=== PATIENT | female | born 1985 | race Caucasian/White ===

== ENCOUNTER 2020-12-02 08:00 | Outpatient (RCR) | payer MEDICAID, SELFPAY | END 2020-12-18 15:06 | disposition home or self-care (01) | LOC: HO.PT 08:00 | PROVIDERS: PCP Internal Medicine; Visit Provider Neurological Surgery | DX: M54.5 Low back pain (principal) | CPT/HCPCS: 97110; 97112; 97140; 97161; 97530 ==

== ENCOUNTER 2020-12-16 12:30 | Outpatient (REF) | payer MEDICAID, SELFPAY ==
[2020-12-16 14:02] LABS: MANUAL DIFF FLAG NO
[2020-12-16 14:07] LABS: Basophils Absolute Auto 0.1 X10*3/uL (0.0-0.2); Basophils Percent Auto 0.6 % (0-2); Eosinophils Absolute Auto 0.3 X10*3/uL (0.0-0.4); Eosinophils Percent Auto 3.5 % (0-4); Hematocrit 39.2 % (37-47); Hemoglobin 12.8 g/dl (12.0-16.0); Imm Gran Abs Auto 0.02 X10*3/uL (0.00-0.03); Imm Gran Pct Auto 0.2 % (0.0-0.4); Lymphocytes Absolute Auto 2.3 X10*3/uL (1.2-4.9); Lymphocytes Percent Auto 25.1 % (20-40); Mean Corpuscular HGB Conc 32.7 g/dl (31.0-35.0); Mean Corpuscular Hemoglobin 28.8 pg (27.0-33.0); Mean Corpuscular Volume 88.1 fL (80-98); Monocytes Absolute Auto 0.7 X10*3/uL (0.1-1.2); Neutrophils Absolute Auto 5.9 X10*3/uL (2.0-8.3); Neutrophils Percent Auto 63.6 % (45-73); Platelet Count 267 X10*3/uL (160-400); Red Blood Count 4.45 X10*6/uL (4.20-5.50); Red Cell Distribution Width 12.4 % (11.0-16.0); White Blood Count 9.3 X10*3/uL (4.8-10.8)
[2020-12-16 14:42] LABS: Alanine Aminotransferase 8 U/L (0-31); Albumin Level 4.1 g/dL (3.5-5.0); Alkaline Phosphatase 72 U/L (39-117); Aspartate Amino Transferase 15 U/L (5-31); Bilirubin Direct < 0.2 mg/dL (0.0-0.5); Bilirubin Total 0.5 mg/dL (0.0-1.0); Total Protein 7.1 g/dL (6.5-8.0)
[2020-12-16 15:05] LABS: T4 Thyroxine 7.5 ug/dL (4.5-12.0); Thyroid Stimulating Hormone 0.62 uIU/mL (0.32-4.0)
== END 2020-12-16 12:31 | disposition home or self-care (01) ==
LOC: HO.LAB 12:30
PROVIDERS: PCP Internal Medicine; Visit Provider Internal Medicine
DX: K59.00 Constipation, unspecified (principal)
CPT/HCPCS: 36415; 80076; 84436; 84443; 85025

== ENCOUNTER → 2021-03-23 06:59 | Outpatient (REF) | payer MEDICAID, SELFPAY ==
--- NOTE | 2021-03-23 07:04 | ECG_ITS ---
Test Reason : check qt prolongation Blood Pressure : / mmHG Vent. Rate : 052 BPM Atrial Rate : 052 BPM P-R Int : 138 ms QRS Dur : 092 ms QT Int : 480 ms P-R-T Axes : 067 065 037 degrees QTc Int : 446 ms Sinus bradycardia Incomplete right bundle branch block Abnormal ECG When compared with ECG of 22-JUN-2018 12:35, Vent. rate has decreased BY 33 BPM Referred By: Lisa Long Electronically Signed By:EVI VALENTE
== END ==
LOC: HO.CARD 06:59
PROVIDERS: PCP Internal Medicine; Visit Provider Family Medicine
DX: I45.81 Long QT syndrome (principal)
CPT/HCPCS: 93005

== ENCOUNTER 2021-03-25 11:58 | Outpatient (REF) | payer MEDICAID, SELFPAY ==
[2021-03-25 12:22] LABS: MANUAL DIFF FLAG NO
[2021-03-25 12:40] LABS: Basophils Percent Auto 0.2 % (0-2); Eosinophils Absolute Auto 0.2 X10*3/uL (0.0-0.4); Hematocrit 37.5 % (37-47); Hemoglobin 12.6 g/dl (12.0-16.0); Imm Gran Abs Auto 0.08 X10*3/uL (0.00-0.03); Imm Gran Pct Auto 0.5 % (0.0-0.4); Lymphocytes Absolute Auto 2.8 X10*3/uL (1.2-4.9); Lymphocytes Percent Auto 15.6 % (20-40); Mean Corpuscular HGB Conc 33.6 g/dl (31.0-35.0); Mean Corpuscular Hemoglobin 29.1 pg (27.0-33.0); Mean Corpuscular Volume 86.6 fL (80-98); Mean Platelet Volume 11.1 fL (9.4-12.3); Monocytes Absolute Auto 0.9 X10*3/uL (0.1-1.2); Neutrophils Absolute Auto 13.8 X10*3/uL (2.0-8.3); Neutrophils Percent Auto 77.7 % (45-73); Platelet Count 251 X10*3/uL (160-400); Red Blood Count 4.33 X10*6/uL (4.20-5.50); White Blood Count 17.7 X10*3/uL (4.8-10.8)
[2021-03-25 13:01] LABS: Alanine Aminotransferase 10 U/L (0-31); Albumin Level 4.2 g/dL (3.5-5.0); Alkaline Phosphatase 62 U/L (39-117); Anion Gap 13 (12-20); Aspartate Amino Transferase 16 U/L (5-31); Bilirubin Direct < 0.2 mg/dL (0.0-0.5); Bilirubin Total 0.3 mg/dL (0.0-1.0); Blood Urea Nitrogen 6 mg/dL (9-16); Calcium 9.5 mg/dL (8.4-10.2); Carbon Dioxide 26 mmol/L (22-29); Chloride 104 mmol/L (96-108); Cholesterol 189 mg/dL; Estimated Glomerular Filt Rate > 60; Glucose Random 110 mg/dL (60-115); HDL Cholesterol 32 mg/dL; LDL Cholesterol Calculated 128 mg/dl; Potassium 3.8 mmol/L (3.3-5.1); Sodium 139 mmol/L (135-145); Total Protein 7.2 g/dL (6.5-8.0); Triglycerides 149 mg/dL
[2021-03-25 13:22] LABS: TSH reflex Free T4 0.55 uIU/mL (0.32-4.0); Vitamin D 25-OH Total 37.3 ng/mL (>30)
[2021-03-25 13:28] LABS: Syphilis Screen Nonreactive (Nonreactive)
[2021-03-25 13:59] LABS: Estimated Average Glucose 88 mg/dL; Hemoglobin A1c % 4.7 %
[2021-03-25 14:54] LABS: CT PCR NOT DETECTED (Not Detect.); NG PCR NOT DETECTED (Not Detect.)
[2021-03-26 08:15] LABS: HIV AB/AG Nonreactive (Nonreactive); HIV Num 1 0.06 S/CO (0.00-0.99); ~HepC Num1 12.15 S/CO (0.00-0.79); ~Hepatitis C Antibody Reactive (Nonreactive)
[2021-03-30 09:22] LABS: HCV Log PCR <1.18 NOT DETECTED Log IU/mL (NOT DETECTED); HepC Viral Load <15 NOT DETECTED IU/mL (NOT DETECTED)
== END 2021-03-25 11:59 | disposition home or self-care (01) ==
LOC: HO.LAB 11:58
PROVIDERS: PCP Internal Medicine; Visit Provider Internal Medicine
DX: Z00.00 Encounter for general adult medical examination without abnormal findings (principal)
CPT/HCPCS: 80048; 80061; 80076; 82306; 83036; 84443; 85025; 86780; 86803; 87389; 87491; 87522; 87591

== ENCOUNTER 2022-01-18 18:02 | Emergency (ER) | payer MEDICAID, SELFPAY ==
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
--- NOTE | ~2022-01-18 | XR_ITS ---
EXAMINATION: XR FOOT, RIGHT CLINICAL INFORMATION: Pain and swelling right foot COMPARISON: None TECHNIQUE: AP, lateral, and oblique views of the right foot. FINDINGS: The bones and soft tissues are normal. A bone island is present in the distal tibia. No fracture. Alignment is anatomic. Joint spaces are maintained. There is a prominent Wood's toe (long second digit). XR/XR foot RT min 3V IMPRESSION: Cause for the patient's foot swelling and pain has not been found.
[2022-01-18 18:06] VITALS: BP 154/106; PULSE 123; RESP 22; TEMP 37.5; O2SAT 97; BMI 31.0
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
[2022-01-18] MEDS: Ibuprofen 800 MG TABLET PO (22:27)
== END 2022-01-18 23:06 | disposition home or self-care (01) ==
PROVIDERS: Emergency Provider Emergency Medicine
DX: S13.4XXA Sprain of ligaments of cervical spine, initial encounter (principal); R51.9 Headache, unspecified; S00.12XA Contusion of left eyelid and periocular area, initial encounter; S00.11XA Contusion of right eyelid and periocular area, initial encounter; M54.2 Cervicalgia; M79.671 Pain in right foot; Y04.2XXA Assault by strike against or bumped into by another person, initial encounter; Y93.9 Activity, unspecified; Y92.9 Unspecified place or not applicable; Y99.9 Unspecified external cause status; Z79.899 Other long term (current) drug therapy
CPT/HCPCS: 70450; 70486; 72125; 73630; 99282; 99284

== ENCOUNTER → 2022-11-24 13:06 | Outpatient (REF) | payer MEDICAID, SELFPAY ==
--- NOTE | 2022-11-24 13:11 | ECG_ITS ---
Test Reason : on methadone ck qt prolongation Blood Pressure : / mmHG Vent. Rate : 078 BPM Atrial Rate : 078 BPM P-R Int : 130 ms QRS Dur : 084 ms QT Int : 400 ms P-R-T Axes : 055 051 040 degrees QTc Int : 456 ms Normal sinus rhythm Normal ECG When compared with ECG of 23-MAR-2021 07:09, Vent. rate has increased BY 26 BPM Referred By: Dolly Buenrostro Electronically Signed By:JEMIMA SHARP MD
== END ==
LOC: HO.CARD 13:06
PROVIDERS: PCP Internal Medicine; Visit Provider Family Medicine
DX: Z79.899 Other long term (current) drug therapy (principal)
CPT/HCPCS: 93005

== ENCOUNTER 2023-03-30 03:18 | Emergency (ER) | payer MEDICAID, SELFPAY ==
[2023-03-30 03:25] VITALS: BP 134/56; PULSE 69; RESP 20; TEMP 36.8; O2SAT 96; BMI 32.8
[2023-03-30 03:48] LABS: Hematocrit 32.2 % (37.0-47.0); Hemoglobin 10.9 g/dl (12.0-16.0); Mean Corpuscular HGB Conc 33.9 g/dl (31.0-35.0); Mean Corpuscular Hemoglobin 29.5 pg (27.0-33.0); Mean Platelet Volume 10.1 fL (9.4-12.3); Platelet Count 248 X10*3/uL (160-400); Red Cell Distribution Width 12.3 % (11.0-16.0); White Blood Count 15.9 X10*3/uL (4.8-10.8)
[2023-03-30 04:10] LABS: Appearance Urine Clear; Color Urine Yellow; Glucose Urine UA Negative (Negative); Leukocyte Esterase Urine Small (1+) (Negative); Nitrite Urine Negative (Negative); PH 6.5 (5.0-9.0); UMIC TRIGGER UACC YES; Urine Blood Trace (Negative); Urine Ketones Negative (Negative); Urine Protein Trace mg/dL (Neg-Trace)
[2023-03-30 04:12] LABS: Urine Pregnancy POSITIVE (NEGATIVE)
[2023-03-30 04:13] LABS: UPreg QC Valid YES
[2023-03-30 04:13] LABS: Alanine Aminotransferase 14 U/L (0-31); Albumin Level 3.2 g/dL (3.5-5.0); Alkaline Phosphatase 210 U/L (39-117); Anion Gap 10 (12-20); Aspartate Amino Transferase 16 U/L (5-31); Bilirubin Total 0.2 mg/dL (0.0-1.0); Blood Urea Nitrogen 6 mg/dL (9-16); Calcium 8.7 mg/dL (8.4-10.2); Carbon Dioxide 21 mmol/L (22-29); Chloride 106 mmol/L (96-108); Creatinine Clr Calc Pharmacy 153.6; Estimated Glomerular Filt Rate > 60; Glucose Random 146 mg/dL (60-115); Lipase 8 U/L (8-78); Potassium 3.4 mmol/L (3.3-5.1); Sodium 134 mmol/L (135-145); Total Protein 6.5 g/dL (6.5-8.0)
[2023-03-30 04:15] LABS: Bacteria Urine 4+ (None Seen); Hyaline Casts Urine 0-2 /LPF (0-2); Squamous Epithelial Cell Urine >20 /HPF (0-2); UACC Culture Trigger YES; WBC Urine 21-50 /HPF (0-5)
[2023-03-30 04:18] LABS: Amphetamine Screen Urine Not Detected (Not Detect); Barbiturates, Urine Not Detected (Not Detect); Benzodiazepines Screen Urine Not Detected (Not Detect); Cannabinoid Screen Urine POSITIVE (Not Detect); Cocaine Screen Urine Not Detected (Not Detect); Fentanyl, urine Not Detected (Not Detect); Opiate Screen Urine Not Detected (Not Detect); Phencyclidine Screen Urine Not Detected (Not Detect)
[2023-03-30 06:14] VITALS: BP 115/62; PULSE 63; RESP 18; TEMP 36.8; O2SAT 94
--- NOTE | 2023-03-30 06:37 | ED_ITS ---
HPI - General Adult General Chief complaint: Back Pain/Injury Stated complaint: 7 months , sharp pain in back Time Seen by Provider: 03/30/23 06:36 Source: patient Mode of arrival: ambulatory Limitations: no limitations History of Present Illness HPI narrative: Patient is a 37 year old assigned female at with a history of lupus and being currently 7 months presenting to the emergency department today with left sided back pain. Patient states that over the last week she has had left sided back pain that is worsening. Patient states that she follows with OBGYN Dr. Larose at [facility]. Patient denies any dizziness, lightheadedness, abdominal pain, nausea, vomiting, fever, chills, blurry vision, double vision, loss of vision, chest pain, difficulty breathing, shortness of breath, night sweats, pain with urination, increased urinary frequency, increased urinary urgency, blood in her urine or stool, syncope or a near syncopal episode, recent trauma or falls, bowel incontinence, bladder incontinence, bowel retention, bladder retention, or any other complaints at this time. Onset (ago): week(s) Location: back and left Radiation: non-radiation Severity: mild Severity scale (1-10): 4 Quality: aching and dull Pain Consistency: constant Relieving factors: none Exacerbating factors: none Associated symptoms: denies other symptoms Treatments prior to arrival: none Related Data Previous Rx's Medication Instructions Recorded ibuprofen 800 mg tablet 800 mg PO Q8H PRN pain #15 tabs 01/18/22 Allergies Allergy/AdvReac Type Severity Reaction Status Date / Time acetaminophen [From TYLENOL] Allergy Unknown UNKNOWN Unverified 03/13/20 17:48 ciprofloxacin [CIPROFLOXACIN] Allergy Unknown UNKNOWN Unverified 03/13/20 17:48 metronidazole [From FLAGYL] Allergy Unknown HIVES Unverified 03/13/20 17:48 paroxetine [From PAXIL] Allergy Unknown UNKNOWN Unverified 03/13/20 17:48 tramadol [TRAMADOL] Allergy Unknown UNKNOWN Unverified 03/13/20 17:48 Review of Systems 2 Constitutional: Constitutional: Reports no additional constitutional complaints, Denies chills, Denies fever(s) and Denies night sweats Eyes: Eyes: Reports no additional eye complaints, Denies blurry vision, Denies change in vision, Denies diplopia, Denies eye discharge, Denies loss of vision and Denies eye pain ENT: Denies dizziness Cardiovascular: Cardiovascular: Reports no additional cardiovascular complaints, Denies chest pain, Denies lightheadedness, Denies Loss of Consciousness and Denies dyspnea Respiratory: Respiratory: Reports no additional respiratory complaints and Denies dyspnea Gastrointestinal: Gastrointestinal: Reports no additional gastrointestinal complaints, Denies abdominal pain, Denies melena, Denies hematochezia, Denies change in bowel habits and Denies change in stool character Genitourinary: Genitourinary: Denies hematuria, Denies urinary frequency, Denies dysuria, Denies urinary incontinence, Denies urinary hesitancy and Denies urinary urgency Musculoskeletal: Musculoskeletal: Reports no additional musculoskeletal complaints, Reports back pain, Denies numbness and Denies tingling Neurologic: Denies dizziness, Denies loss of vision, Denies numbness and Denies tingling Psychiatric: Psychiatric: Reports no additional psychiatric complaints Endocrine: Endocrine: Reports no additional endocrine complaints Hematologic/Lymphatic: Hematologic/Lymphatic: Reports no additional hematologic/lymphatic complaints Allergic/Immunologic: Allergic/Immunologic: Reports no additional allergic/immunologic complaints PMFSH Past Medical History Attestation statement: The following information was validated with the patient. Source: old records reviewed and nursing notes reviewed Social History Social History Smoked in Last 30 Days: No Use of substances other than those prescribed or required for medical reasons: Yes Substance Use Type: Marijuana Substance Use Frequency: Occasionally Advance Directives: No Advance Directives Information Provided: No Patient : Yes Physical Exam ED Vital Signs: Vital Signs - 24 hr 03/30/23 03:25 03/30/23 06:14 Temperature 98.3 F 98.3 F Pulse Rate 69 63 Respiratory Rate 20 18 Blood Pressure 134/56 L 115/62 Pulse Oximetry 96 94 Oxygen Delivery Method Room Air Room Air BMI result Body Mass Index 32.8 Const General: cooperative, no acute distress, alert and awake Nutritional Appearance: well nourished Orientation/consciousness: patient oriented x3 Limitations: no limitations HENMT Head: Yes normal to inspection and Yes atraumatic Ears: hearing grossly normal bilaterally and external ears normal General nose exam: Normal external nose present, no nasal discharge noted and no epistaxis Face and sinus: Yes normal facial exam, No abrasion and No laceration Mouth: Normal oral and palatal mucosa present, no drooling and no muffled voice Eyes General: appearance normal, both eyes and all related structures Periorbital: periorbital findings normal Eyelids: Yes eyelids normal Conjunctivae: conjunctivae normal Pupils: Equal, round and reactive pupils present EOM: EOMs intact bilaterally Neck Neck: Yes normal visual inspection, Yes full ROM and Yes no lymphadenopathy Chest Chest palpation & inspection: normal inspection of the chest Resp Effort & Inspection: normal respiratory effort and able to speak in complete sentences Auscultation: clear to auscultation bilaterally Cardio Rate: regular rate Rhythm: regular rhythm GI Other: heart tones 137 Inspection: Yes normal to inspection Palpation (GI): Soft to palpation, not firm, nontender and no guarding General: Yes CVA tenderness on the left Back/Spine/Pelvis Back: CVA tenderness Neuro General: patient oriented x3 and moves all extremities Cranial nerves: Yes Equal, round and reactive pupils present Cognition (Neuro): normal cognition Motor exam (neuro): 5/5 motor strength present throughout Sensory Exam: Normal double simultaneous stimulation for sensation Coordination: [id number] test normal Extrem General: Yes normal to inspection, Yes full ROM and Yes capillary refill normal Psych Appearance: grossly normal Mental Status: mental status grossly normal Affect: normal affect Attitude: cooperative Thought process: Normal thought process present Thought content: Normal thought content present Insight: Good insight present (Psych) Medical Decision Making Medical Decision Making MDM Narrative: Patient is a 37 year old assigned female at with a history of lupus and 7 months presenting to the emergency department today with left sided back pain. Patient's physical exam showed CVA tenderness to the left side. Patient's blood work showed an elevated WBC count of 15.9. Patient's urine showed a urinary tract infection. Patient's clinical presentation is consistent with pyelonephrtitis however, patient is not septic (@0650). I spoke with Dr. Marie, our covering OBGYN, who recommended the patient be transferred to [facility] immediately for continual monitoring. I called and spoke with Dr. Moreira from [facility] who agreed to direct admission. I explained my physical exam findings as well as all test results to the patient. I answered all questions asked by the patient. IV antibiotics were started. Patient verbalized agreement and understanding with this treatment plan and transfer. Differential Diagnosis Differential Diagnoses: The differential diagnosis associated with the presentation includes Pyelonpehritis UTI Admission/Observation Consideration of admission/observation: Escalation of care including admission/observation considered Patient to be transferred to [facility]. Consult Healthcare Provider Management of the patient was discussed with: Draw String Knotter (spoke with OBGYN and [facility] as noted in the MDM rationale portion of this note.) Lab Data [facility] Lab Attestation statement: I reviewed the patient's lab results. My interpretation of these results are in the MDM rationale portion of this note. 03/30/23 03:43 03/30/23 03:43 Labs: Lab Results 03/30/23 03/30/23 Range/Units 03:43 04:00 WBC 15.9 H (4.8-10.8) X10*3/uL RBC 3.70 L (4.20-5.50) X10*6/uL Hgb 10.9 L (12.0-16.0) g/dl Hct 32.2 L (37.0-47.0) % MCV 87.0 (80.0-98.0) fL MCH 29.5 (27.0-33.0) pg MCHC 33.9 (31.0-35.0) g/dl RDW 12.3 (11.0-16.0) % Plt Count 248 (160-400) X10*3/uL MPV 10.1 (9.4-12.3) fL Absolute Nucleated RBC 0.000 (0.0-0.012) X10*3/uL Nucleated RBC % (auto) 0.0 (0.0-0.2) /100WBC Sodium 134 L (135-145) mmol/L Potassium 3.4 (3.3-5.1) mmol/L Chloride 106 (96-108) mmol/L Carbon Dioxide 21 L (22-29) mmol/L Anion Gap 10 L (12-20) BUN 6 L (9-16) mg/dL Creatinine 0.64 (0.5-1.4) mg/dL Estim Creat Clear Calc 153.6 Estimated GFR > 60 Random Glucose 146 H (60-115) mg/dL Calcium 8.7 D (8.4-10.2) mg/dL Total Bilirubin 0.2 (0.0-1.0) mg/dL AST 16 (5-31) U/L ALT 14 (0-31) U/L Alkaline Phosphatase 210 H (39-117) U/L Total Protein 6.5 (6.5-8.0) g/dL Albumin 3.2 L (3.5-5.0) g/dL Lipase 8 (8-78) U/L Urine Color Yellow Urine Appearance Clear Urine pH 6.5 (5.0-9.0) Ur Specific [place] 1.020 (1.005-1.025) Urine Protein Trace (Neg-Trace) mg/dL Urine Glucose (UA) Negative (Negative) mg/dL Urine Ketones Negative (Negative) mg/dL Urine Blood Trace H (Negative) Urine Nitrite Negative (Negative) Ur Leukocyte Esterase Small (1+) H (Negative) Urine RBC 11-20 H (0-2) /HPF Urine WBC 21-50 H (0-5) /HPF Ur Squamous Epith Cells >20 (0-2) /HPF Urine Bacteria 4+ (None Seen) Hyaline Casts 0-2 (0-2) /LPF Urine Test POSITIVE H (NEGATIVE) Urine Opiates Screen Not Detected (Not Detect) Urine Fentanyl Screen Not Detected (Not Detect) Ur Barbiturates Screen Not Detected (Not Detect) Ur Phencyclidine Scrn Not Detected (Not Detect) Ur Amphetamines Screen Not Detected (Not Detect) U Benzodiazepines Scrn Not Detected (Not Detect) Urine Cocaine Screen Not Detected (Not Detect) U Marijuana (THC) Screen POSITIVE H (Not Detect) Chronic Conditions Patient?s care impacted by: Other (lupus, ) Critical Care Time Critical Care Time Critical Care Time: Yes Total Critical Care Time: 45 Attestation: I spent 45 minutes of Critical Care Time with this patient. This does not include time spent on separately reported billable procedures. Discharge Plan Discharge Clinical Impression: Pyelonephritis, Patient Disposition: Xfer [facility] Transfer Details: To [facility] Prescriptions: No Action ibuprofen 800 mg tablet 800 mg PO Q8H PRN (Reason: pain) Qty: 15 0RF
--- NOTE | 2023-03-30 07:00 | PM.OBCN ---
OB Consult Note - [facility] Data Service Date: 03/30/23 Primary Care Provider: Unknown Physician Narrative I was contacted at 06:53 regarding Angela Oneill who is a 37 year old female at 28 weeks of gestation presented to the emergency department with left sided back pain that started a week ago is worsening, no associated abdominal cramping, or vaginal bleeding , no leakage of fluid, no nausea, vomiting, fever, or chills, no blurry vision, double vision, loss of vision, or difficulty breathing, no shortness of breath, pain with urination, and no other complaints at this time. OB [facility] Social History Social History Smoked in Last 30 Days: No Use of substances other than those prescribed or required for medical reasons: Yes Substance Use Type: Marijuana Substance Use Frequency: Occasionally Advance Directives: No Advance Directives Information Provided: No Patient : Yes Meds Allergies Allergy/AdvReac Type Severity Reaction Status Date / Time acetaminophen [From TYLENOL] Allergy Unknown UNKNOWN Unverified 03/13/20 17:48 ciprofloxacin [CIPROFLOXACIN] Allergy Unknown UNKNOWN Unverified 03/13/20 17:48 metronidazole [From FLAGYL] Allergy Unknown HIVES Unverified 03/13/20 17:48 paroxetine [From PAXIL] Allergy Unknown UNKNOWN Unverified 03/13/20 17:48 tramadol [TRAMADOL] Allergy Unknown UNKNOWN Unverified 03/13/20 17:48 Active Medications: Current Medications Ceftriaxone Sodium 1 gm/ (Sodium Chloride) 50 mls @ 100 mls/hr IV ONCE ONE Stop: 03/30/23 07:20 OB Physical Exam Physical Exam Additional Comments: Reported by KIA Purvis from the emergency room at the following: Abdomen: Soft to palpation, not firm, nontender and no guarding Left CVA tenderness heart rate= 137bpm OB Consult Results Labs 03/30/23 03:43 03/30/23 03:43 Labs: Short CBC 03/30/23 Range/Units 03:43 WBC 15.9 H (4.8-10.8) X10*3/uL Hgb 10.9 L (12.0-16.0) g/dl Hct 32.2 L (37.0-47.0) % Plt Count 248 (160-400) X10*3/uL BMP 03/30/23 03:43 Sodium 134 L Potassium 3.4 Chloride 106 Carbon Dioxide 21 L BUN 6 L Creatinine 0.64 Calcium 8.7 D Liver Function 03/30/23 Range/Units 03:43 Total Bilirubin 0.2 (0.0-1.0) mg/dL AST 16 (5-31) U/L ALT 14 (0-31) U/L Alkaline Phosphatase 210 H (39-117) U/L Albumin 3.2 L (3.5-5.0) g/dL Urine 03/30/23 Range/Units 04:00 Urine Color Yellow Urine Appearance Clear Urine pH 6.5 (5.0-9.0) Ur Specific [place] 1.020 (1.005-1.025) Urine Protein Trace (Neg-Trace) mg/dL Urine Glucose (UA) Negative (Negative) mg/dL Urine Test POSITIVE H (NEGATIVE) OB - CN: A/P Assessment and Plan (1) Pyelonephritis: Status: Acute Assessment and Plan: Twenty-eight weeks of gestation Plan Recommended the following to KIA Barnett: Blood cultures, IV antibiotics (1 g ceftriaxone IV Q 24 hours) to be initiated, urgent transfer the patient out [facility] to [facility] [place] since that is no availability of Ob monitor at [facility] in order to rule out contractions and assess heart rate. I spent a total of 20 minutes reviewing the chart, communicating the emergency room provider and documenting in the medical record Time Spent With Patient Time: Total time managing care of this patient today ____ minutes.
--- NOTE | 2023-03-30 08:08 | PC.NURSE ---
difficult stick - multiple attempts to obtain blood work, call placed to phlebotomy for blood cultures and lactic acid. pt accepted to [facility], awaiting bed assignment
[2023-03-30] MEDS: cefTRIAXone sodium 1 GM in 0.9 % Sodium Chloride 50 ML IV (08:58)
--- NOTE | 2023-03-30 09:05 | PC.NURSE ---
phlebotomy unable to obtain blood cultures, provider okayed antibiotics to be given. pt has room assignment at [facility], unhappy to take EMS to [facility]. significant other at bedside.
[2023-03-30 09:31] VITALS: BP 122/64; PULSE 64; RESP 16; TEMP 36.9; O2SAT 96
--- NOTE | 2023-03-30 09:36 | PC.NURSE ---
report given to [facility]. pt continues to leave the department to go outside. continuously educated on the need to stay in her room as she is to be transferred to [facility].
== END 2023-03-30 10:22 | disposition short-term general hospital (02) ==
PROVIDERS: Emergency Provider Emergency Medicine
DX: O26.93 Pregnancy related conditions, unspecified, third trimester (principal); N12 Tubulo-interstitial nephritis, not specified as acute or chronic; M54.50 Low back pain, unspecified; Z3A.28 28 weeks gestation of pregnancy; Z79.899 Other long term (current) drug therapy
CPT/HCPCS: 36415; 80053; 80307; 81001; 81025; 83690; 85027; 87086; 87088; 87186; 96365; 99284; 99285; J0696

== ENCOUNTER 2024-05-14 09:52 | Outpatient (RCR) | payer OTHER, MEDICAID, SELFPAY | END 2024-06-15 06:55 | disposition home or self-care (01) | LOC: HO.PT 09:52 | PROVIDERS: PCP Student in an Organized Health Care Education/Training Program; Visit Provider Family Medicine | DX: M25.562 Pain in left knee (principal); M25.512 Pain in left shoulder | CPT/HCPCS: 97014; 97110; 97162 ==

== ENCOUNTER 2024-05-22 10:20 | Outpatient (REF) | payer OTHER, MEDICAID, SELFPAY ==
[2024-05-22 11:48] LABS: MANUAL DIFF FLAG NO
[2024-05-22 12:05] LABS: Basophils Absolute Auto 0.1 X10*3/uL (0.0-0.2); Basophils Percent Auto 0.7 % (0-2); Eosinophils Absolute Auto 0.3 X10*3/uL (0.0-0.4); Eosinophils Percent Auto 3.7 % (0-4); Hematocrit 40.5 % (37.0-47.0); Hemoglobin 13.5 g/dl (12.0-16.0); Imm Gran Abs Auto 0.02 X10*3/uL (0.00-0.03); Imm Gran Pct Auto 0.3 % (0.0-0.4); Lymphocytes Absolute Auto 1.9 X10*3/uL (1.2-4.9); Lymphocytes Percent Auto 26.3 % (20-40); Mean Corpuscular HGB Conc 33.3 g/dl (31.0-35.0); Mean Corpuscular Hemoglobin 29.1 pg (27.0-33.0); Mean Corpuscular Volume 87.3 fL (80.0-98.0); Mean Platelet Volume 11.8 fL (9.4-12.3); Monocytes Absolute Auto 0.7 X10*3/uL (0.1-1.2); Monocytes Percent Auto 9.5 % (2-11); Neutrophils Absolute Auto 4.2 x10*3/uL (2.0-8.3); Neutrophils Percent Auto 59.5 % (45-73); Platelet Count 234 X10*3/uL (160-400); Red Blood Count 4.64 X10*6/uL (4.20-5.50); Red Cell Distribution Width 12.6 % (11.0-16.0); White Blood Count 7.1 X10*3/uL (4.8-10.8)
[2024-05-22 12:33] LABS: Alanine Aminotransferase 17 U/L (0-31); Albumin Level 4.2 g/dL (3.5-5.0); Alkaline Phosphatase 83 U/L (39-117); Anion Gap 12 (12-20); Aspartate Amino Transferase 22 U/L (5-31); Bilirubin Total 0.2 mg/dL (0.0-1.0); Blood Urea Nitrogen 6 mg/dL (9-16); Calcium 9.2 mg/dL (8.4-10.2); Carbon Dioxide 25 mmol/L (22-29); Chloride 101 mmol/L (96-108); Cholesterol 156 mg/dL (<200); Estimated Average Glucose 97 mg/dL; Estimated Glomerular Filt Rate > 60; Glucose Random 128 mg/dL (60-115); HDL Cholesterol 29 mg/dL (>40); Hemoglobin A1C 106.1096 umol/L; LDL Cholesterol Calculated 106 mg/dL (<100); Potassium 3.6 mmol/L (3.3-5.1); Sodium 134 mmol/L (135-145); Total Hemoglobin (HGBA1C) 3430.2815 umol/L; Total Protein 7.5 g/dL (6.5-8.0); Triglycerides 109 mg/dL (<150)
[2024-05-22 12:44] LABS: HIV AB/AG Nonreactive (Nonreactive); HIV Num 1 0.05 S/CO (0.00-0.99); ~HepC Num1 9.88 S/CO (0.00-0.79); ~Hepatitis C Antibody Reactive (Nonreactive)
[2024-05-22 12:50] LABS: TSH reflex Free T4 < 0.01 uIU/mL (0.32-4.0); Vitamin D 25-OH Total 61.1 ng/mL (>30)
[2024-05-22 13:40] LABS: Free T4 (Free Thyroxine) 0.97 ng/dL (0.71-1.85)
[2024-05-25 13:18] LABS: HCV Log PCR <1.18 NOT DETECTED Log IU/mL (NOT DETECTED); HepC Viral Load <15 NOT DETECTED IU/mL (NOT DETECTED)
== END 2024-05-22 10:21 | disposition home or self-care (01) ==
LOC: HO.HHCL 10:20
PROVIDERS: Visit Provider Internal Medicine
DX: Z00.00 Encounter for general adult medical examination without abnormal findings (principal); Z13.1 Encounter for screening for diabetes mellitus
CPT/HCPCS: 36415; 80053; 80061; 82306; 83036; 84439; 84443; 85025; 86803; 87389; 87522

== ENCOUNTER 2024-06-28 09:03 | Outpatient (AMB) | payer OTHER, MEDICAID, SELFPAY ==
[2024-06-28 09:10] VITALS: BMI 32.8
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
== END 2024-06-28 09:31 | disposition home or self-care (01) ==
PROVIDERS: PCP Student in an Organized Health Care Education/Training Program; Visit Provider Orthopaedic Surgery
DX: M75.42 Impingement syndrome of left shoulder (principal)
CPT/HCPCS: 99203; G2211

== ENCOUNTER 2024-06-28 10:40 | Outpatient (REF) | payer OTHER, MEDICAID, SELFPAY ==
--- NOTE | ~2024-06-28 | XR_ITS ---
EXAMINATION: XR SHOULDER 2 OR MORE VIEWS LEFT HISTORY: M25.512 - Pain in left shoulder COMPARISON: There are no prior studies available for comparison. FINDINGS: Two views of the left shoulder are submitted. Osseous mineralization is normal. There is no fracture or dislocation. The joint spaces are preserved. The soft tissues are unremarkable. XR/XR shoulder LT min 2V IMPRESSION: Unremarkable examination of the left shoulder. Electronically signed by: Roddy Genao MD 07/04/2024 08:12 AM HERBIE
== END 2024-06-28 10:41 | disposition home or self-care (01) ==
LOC: HO.HOSX 10:40
PROVIDERS: Visit Provider Orthopaedic Surgery
DX: M25.512 Pain in left shoulder (principal)
CPT/HCPCS: 73030

== ENCOUNTER 2024-07-04 08:50 | Outpatient (AMB) | payer OTHER, MEDICAID, SELFPAY ==
[2024-07-04 08:53] VITALS: BMI 32.8
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
== END 2024-07-04 09:22 | disposition home or self-care (01) ==
PROVIDERS: PCP Student in an Organized Health Care Education/Training Program; Visit Provider Orthopaedic Surgery
DX: S83.242A Other tear of medial meniscus, current injury, left knee, initial encounter (principal)
CPT/HCPCS: 99213; G2211

== ENCOUNTER → 2024-07-04 08:50 | Outpatient (BNVA) | payer OTHER, MEDICAID, SELFPAY | PROVIDERS: PCP Student in an Organized Health Care Education/Training Program; Visit Provider Orthopaedic Surgery ==

== ENCOUNTER 2024-07-05 09:24 | Outpatient (AMB) | payer OTHER, MEDICAID, SELFPAY ==
--- NOTE | 2024-07-05 09:27 | MHC.OFFVIS ---
Vital Signs 07/05/24 09:28 Height 5 ft 9 in Weight 229 lb 11.547 oz BMI 33.9 BP 132/74 Blood Pressure Location Lt brachial Position Sitting Pulse 86 Pulse Source Pulse Oximeter Intake Visit Reasons: Hyperthyroidism Intake Note: New patient referred by [facility] for Hyperthyroidism. Rn Cardiac Cath Required: No Accompanied by: Self / Same As Patient Allergies acetaminophen [From TYLENOL] Allergy (Unknown, Verified 07/05/24 09:32) UNKNOWN ciprofloxacin [CIPROFLOXACIN] Allergy (Unknown, Verified 07/05/24 09:32) UNKNOWN metronidazole [From FLAGYL] Allergy (Unknown, Verified 07/05/24 09:32) HIVES paroxetine [From PAXIL] Allergy (Unknown, Verified 07/05/24 09:32) UNKNOWN tramadol [TRAMADOL] Allergy (Unknown, Verified 07/05/24 09:32) UNKNOWN Medication List - Last Reconciled 07/05/24 by Samantha Lott MD citalopram 40 mg PO DAILY diclofenac sodium 1% grams topical DAILY PRN gabapentin 1,200 mg PO TID hydroxychloroquine 200 mg PO DAILY ibuprofen 800 mg PO Q8H PRN methylprednisolone (Medrol (Mani)) PO PER PKG DIR omeprazole 40 mg PO QAM PNV,calcium 73-lcdx-rflxj acid 27 mg iron- 1 mg (M-Guanaco Plus) 1 tab PO DAILY HPI Comments Details: 38-year-old female here today for initial evaluation of subclinical hyperthyroidism. Labs from 05/22/2024 showed TSH of less than 0.01, with free T4 normal at 0.97. Patient currently denies heat or cold intolerance, diarrhea or constipation, hair loss, mood changes, changes in appearance of eyes or vision changes, tremors, increased diaphoresis or dry skin. Intermittent palpitations. ?Reports history of anxiety , not worse. Reports tiredness Gained 20 lbs in the past 2 years LMP: before she had the baby, has nexplanon since Patient denies any difficulty swallowing, pain on swallowing or voice changes or difficulty breathing. Patient denies any history of childhood neck radiation. Denies having ever used lithium, amiodarone or biotin supplements. Patient denies any family history of thyroid cancer . Mother had hyperthyroidism. Doesnt remember if she had preceding viral illness. Not . 6 pregnancies. 4 miscarriages, boy is 19 years old. Baby girl is 13 months old. No recent iodine contrast administration. On methadone, has history of opioid dependence No alcohol use Smokes half a pack a day Occasional marijuana smoking Review of systems Constitutional: no fevers, chills HEENT: no changes in vision Cardiac: No chest pain, discomfort or palpitations. Pulmonary: No SOB GI:No abdominal pain, no nausea or vomiting, no anorexia, no blood in stool : no burning micturition, dysuria or increase in urinary frequency Physical exam General: sitting comfortably in no acute distress HEENT: normocephalic/atraumatic, EOM intact, moist oral mucosa Neck: supple, symmetrical, no thyromegaly Cardiac: normal heart sounds Pulm: normal breath sounds B/L, no added breath sounds Abd: not distended, no tenderness Extremities: no edema, no signs of myxedema, no tremors Neuro: AAO x3, Speech: normal, no facial droop, moving all 4 extremities Laboratory Tests 12/16/20 03/25/21 05/22/24 12:45 12:20 10:25 25-OH Vitamin D Total 61.1 TSH 0.62 0.55 < 0.01 L Free T4 0.97 [facility] Medical History (Updated 07/05/24 @ 09:59 by Samantha Lott MD) Subclinical hyperthyroidism Hyperthyroidism Chronic pain of left knee Chronic left shoulder pain Other forms of systemic lupus erythematosus Chronic cervical pain 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, initial encounter Opioid dependence, uncomplicated Discitis, unspecified, lumbar region Surgical History (Updated 07/05/24 @ 09:34 by ZEFERINO aSleh) History of surgery Hx of section Family History (Updated 07/05/24 @ 09:36 by ZEFERINO Saleh) Mother Hyperthyroidism Depression Anxiety Father Prostate cancer Asthma High blood pressure High cholesterol Diabetes Social History Substance Use Type: Marijuana Assessment & Plan Assessment & Plan (1) Subclinical hyperthyroidism: Code(s): E05.90 - Thyrotoxicosis, unspecified without thyrotoxic crisis or storm Category: Medical Plan: 38-year-old female here today for initial evaluation of subclinical hyperthyroidism. Labs from 05/22/2024 showed TSH of less than 0.01, with free T4 normal at 0.97. No history of thyroid dysfunction. We will repeat labs. Given TSH is less than 0.1, she would meet criteria for treatment. We will check for antibodies. If they are negative we will proceed with getting a thyroid uptake and scan. Plan: -ordered TSH, free T4, total T3, TPO, TSI, TRAB antibodies -follow up in 2 weeks to discuss results Plan I spent 45 minutes in reviewing the record, seeing the patient and documenting in the medical record. Orders: Orders Thyroid Stimulating Hormone Today E05.90 - Thyrotoxicosis, unspecified without thyrotoxic crisis or storm Free T4 (Free Thyroxine) Today E05.90 - Thyrotoxicosis, unspecified without thyrotoxic crisis or storm Thyroid Stimulating Immunoglob Today E05.90 - Thyrotoxicosis, unspecified without thyrotoxic crisis or storm Thyroid Peroxidase Antibodies Today E05.90 - Thyrotoxicosis, unspecified without thyrotoxic crisis or storm Thyrotropin Receptor Antibody Today E05.90 - Thyrotoxicosis, unspecified without thyrotoxic crisis or storm Triiodothyronine T3 Total Today E05.90 - Thyrotoxicosis, unspecified without thyrotoxic crisis or storm Patient Instructions: Do blood work today -follow up in 2 weeks to discuss results Coding Level of Care Code New Pt Level 4 (10218) Diagnoses Subclinical hyperthyroidism E05.90 Time Spent (min) 45
[2024-07-05 09:28] VITALS: BP 132/74; PULSE 86; BMI 33.9
== END 2024-07-05 10:06 | disposition home or self-care (01) ==
PROVIDERS: PCP Student in an Organized Health Care Education/Training Program; Visit Provider Student in an Organized Health Care Education/Training Program
DX: E05.90 Thyrotoxicosis, unspecified without thyrotoxic crisis or storm (principal)
CPT/HCPCS: 99204

== ENCOUNTER 2024-07-05 09:24 | Outpatient (REF) | payer MEDICAID, SELFPAY ==
[2024-07-05 11:43] LABS: Free T4 (Free Thyroxine) 0.92 ng/dL (0.71-1.85); Thyroid Stimulating Hormone 0.39 uIU/mL (0.32-4.0)
[2024-07-06 16:57] LABS: Triiodothyronine T3 Total 131 ng/dL (76-181)
[2024-07-10 12:58] LABS: Thyroid Peroxidase Antibodies 51 IU/mL (<9)
[2024-07-10 15:47] LABS: Thyroid Stimulating Immunoglob <89 % baseline (<140)
[2024-07-10 21:39] LABS: Thyrotropin Receptor Antibody <1.00 IU/L (<=2.00)
== END 2024-07-05 09:25 | disposition home or self-care (01) ==
LOC: HO.LAB 09:24
PROVIDERS: PCP Student in an Organized Health Care Education/Training Program; Visit Provider Student in an Organized Health Care Education/Training Program
DX: E05.90 Thyrotoxicosis, unspecified without thyrotoxic crisis or storm (principal)
CPT/HCPCS: 36415; 83520; 84439; 84443; 84445; 84480; 86376

== ENCOUNTER 2024-07-19 09:27 | Outpatient (AMB) | payer OTHER, MEDICAID, SELFPAY ==
[2024-07-19 09:30] VITALS: BP 100/64; PULSE 65; BMI 32.5
--- NOTE | 2024-07-19 09:30 | A.OFFVIS_ITS ---
Vital Signs 07/19/24 09:30 Height 5 ft 9 in Weight 220 lb 0.341 oz BMI 32.5 BP 100/64 Blood Pressure Location Lt brachial Position Sitting Pulse 65 Pulse Source Pulse Oximeter Intake Visit Reasons: Hyperthyroidism Intake Note: Patient present today for Hyperthyroidism office visit. 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 Required: No Accompanied by: business services associate Allergies acetaminophen [From TYLENOL] Allergy (Unknown, Verified 07/19/24 09:33) UNKNOWN ciprofloxacin [CIPROFLOXACIN] Allergy (Unknown, Verified 07/19/24 09:33) UNKNOWN metronidazole [From FLAGYL] Allergy (Unknown, Verified 07/19/24 09:33) HIVES paroxetine [From PAXIL] Allergy (Unknown, Verified 07/19/24 09:33) UNKNOWN tramadol [TRAMADOL] Allergy (Unknown, Verified 07/19/24 09:33) UNKNOWN Medication List - Last Reconciled 07/19/24 by Samantha Lott MD citalopram 40 mg PO DAILY diclofenac sodium 1% grams topical DAILY PRN gabapentin 1,200 mg PO TID hydroxychloroquine 200 mg PO DAILY ibuprofen 800 mg PO Q8H PRN methylprednisolone (Medrol (Mani)) PO PER PKG DIR omeprazole 40 mg PO QAM PNV,calcium 57-deaa-jeczi acid 27 mg iron- 1 mg (M- Plus) 1 tab PO DAILY HPI Comments Details: 38-year-old female here today for follow up of subclinical hyperthyroidism. HPI from prior visit Labs from 05/22/2024 showed TSH of less than 0.01, with free T4 normal at 0.97. Patient denies heat or cold intolerance, diarrhea or constipation, hair loss, mood changes, changes in appearance of eyes or vision changes, tremors, increased diaphoresis or dry skin. Intermittent palpitations. ?Reports history of anxiety , not worse. Reports tiredness Gained 20 lbs in the past 2 years LMP: before she had the baby, has nexplanon since Patient denies any difficulty swallowing, pain on swallowing or voice changes or difficulty breathing. Patient denies any history of childhood neck radiation. Denies having ever used lithium, amiodarone or biotin supplements. Patient denies any family history of thyroid cancer . Mother had hyperthyroidism. Doesnt remember if she had preceding viral illness. Not . 6 pregnancies. 4 miscarriages, boy is 19 years old. Baby girl is 13 months old. No recent iodine contrast administration. On methadone, has history of opioid dependence No alcohol use Smokes half a pack a day Occasional marijuana smoking Interval history Repeat labs 07/05/2024 showed TSH had normalized to 0.39, free T4 normal at 0.92. Normal total T3, TSI and TSH receptor antibodies were both undetectable. TPO antibodies noted to be elevated at 51. Physical exam General: sitting comfortably in no acute distress HEENT: normocephalic/atraumatic Neck: supple, symmetrical, no thyromegaly Cardiac: normal heart sounds Pulm: normal breath sounds B/L, no added breath sounds Abd: not distended, no tenderness Extremities: no edema, no signs of myxedema, no tremors Neuro: AAO x3, Speech: normal, no facial droop, moving all 4 extremities Laboratory Tests 12/16/20 03/25/21 05/22/24 12:45 12:20 10:25 25-OH Vitamin D Total 61.1 TSH 0.62 0.55 < 0.01 L Free T4 0.97 Laboratory Tests 07/05/24 10:37 TSH 0.39 Free T4 0.92 Total T3 131 Thyroid Stim Immunoglob <89 Thyroid Peroxidase Ab 51 H TSH Receptor Ab <1.00 PFSH Medical History (Updated 07/05/24 @ 09:59 by Samantha Lott MD) Subclinical hyperthyroidism Hyperthyroidism Chronic pain of left knee Chronic left shoulder pain Other forms of systemic lupus erythematosus Chronic cervical pain 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, initial encounter Opioid dependence, uncomplicated Discitis, unspecified, lumbar region Surgical History History of surgery Hx of section Family History Mother Hyperthyroidism Depression Anxiety Father Prostate cancer Asthma High blood pressure High cholesterol Diabetes Social History Substance Use Type: Marijuana Assessment & Plan Assessment & Plan (1) Subclinical hyperthyroidism: Code(s): E05.90 - Thyrotoxicosis, unspecified without thyrotoxic crisis or storm Category: Medical Plan: 39-year-old female here today for follow up of subclinical hyperthyroidism. Labs from 05/22/2024 showed TSH of less than 0.01, with free T4 normal at 0.97. No history of thyroid dysfunction. . Given TSH is less than 0.1, she would have med treatment criteria so we decided to pursue further investigation.. Repeat labs 07/05/2024 showed TSH had normalized to 0.39, free T4 normal at 0.92. Normal total T3, TSI and TSH receptor antibodies were both undetectable. TPO antibodies noted to be elevated at 51. At this point her labs have normalized, she is biochemically euthyroid. Given elevated TPO antibodies, she could possibly develop thyroid dysfunction in the future. Her primary care provider can monitor her thyroid labs once a year with a set in 6 months from now . If those are abnormal she can be referred back to us. At this point she does not need to follow up with the endocrinology. Plan See above Patient Instructions: Your labs have totally normalized. You do not have any thyroid dysfunction at this point. Your primary care physician/provider can monitor your thyroid labs in 6 months from now and then once a year to ensure these remain normal. If they are abnormal you can be referred back to us. Coding Level of Care Code Est Pt Level 3 (38381) Diagnoses Subclinical hyperthyroidism E05.90
== END 2024-07-19 09:42 | disposition home or self-care (01) ==
PROVIDERS: PCP Student in an Organized Health Care Education/Training Program; Visit Provider Student in an Organized Health Care Education/Training Program
DX: E05.90 Thyrotoxicosis, unspecified without thyrotoxic crisis or storm (principal)
CPT/HCPCS: 99213

== ENCOUNTER → 2024-07-19 09:27 | Outpatient (BNVA) | payer OTHER, MEDICAID, SELFPAY | PROVIDERS: PCP Student in an Organized Health Care Education/Training Program; Visit Provider Student in an Organized Health Care Education/Training Program ==

== ENCOUNTER 2024-08-03 09:10 | Day surgery (SDC) | payer OTHER, MEDICAID, SELFPAY ==
[2024-08-01 11:36] VITALS: BMI 32.5
[2024-08-01 12:13] VITALS: BMI 32.5
[2024-08-03 09:36] VITALS: BMI 32.6
--- OUTSIDE RECORDS SUMMARY | 2024-08-03 09:37 | XMS_ITS | Patient Health Record ---
Author Organization [facility] Address [address] [place] [address] Care Team Providers Care Customer Care Representative Name Role Phone Reyna Izquierdo M.D. Primary Care Provider Roddy Murray Unavailable [phone] ALLERGIES Allergen (clinical drug ingredient) Drug/Non Drug Allergy documented on EMR Reaction Allergy Type Onset Date Status acetaminophen Tylenol Unknown Drug Allergy Act mary tramadol Tramadol HCl Unknown Drug Allergy Acti ve paroxetine Paxil Unknown Drug Allergy Active ciprofloxacin Cipro hives Drug Allergy Act mary REASON FOR REFERRAL No Information MEDICATIONS Medication SIG (Take, Route, Frequency, Duration) Notes Start Date End Date Status Gabapentin 800 MG TAKE 1 TABLET FOUR TIMES A DAY ORALLY 30 DAYS Oral for 30 Active Citalopram Hydrobromide 40 MG TAKE 1 TABLET BY MOUTH EVERY DAY Oral for 30 Active Pantoprazole Sodium 40 MG TAKE 1 TABLET BY MOUTH EVERY DAY Oral for 30 Active oxyCODONE HCl Not-Ta denzel Methadone HCl 10 MG 1 tablet Orally Active IMMUNIZATIONS Vaccine Route Administration Date Status Comme nts Influenza Unknown 04/09/2020 Administered SOCIAL HISTORY Tobacco Use: Social History Observation Description Date Details (start date - stop date) Current Smoker NA - NA Sex Assigned At : Social History Observation Description Sex Assigned At Unknown Tobacco Use/Smoking Question Answer Notes Patient is a current smoker How often do you smoke cigarettes? every day How many cigarettes a day do you smoke? 21-30 Alcohol Screen Question Answer Notes Did you have a drink containing alcohol in the p ast year? No Points 0 Interpretation Negative PROBLEMS Problem Type ICD Code Onset Dates Problem Status W/U Status Risk SNOMED Code Notes Problem Gastroesophageal reflux disease, esophagitis presence not specified (K21.9) Active confirmed 907620093 Problem Irritable bowel syndrome with both constipation and diarrhea (K58.2) Active confirmed 26325310 Problem Diarrhea, unspecified type (R19.7) Active confirmed 49898498 Problem Non-intractable vomiting without nausea, unspecified vomiting type (R11.11) Active confirmed 061310877 Problem Non-intractable vomiting with nausea, unspecified vomiting type (R11.2) Active confirmed 19364528 Problem Constipation, unspecified constipation type (K59.00) Active confirmed [id number] PLAN OF TREATMENT Pending Test Test Name Order Date LIVER PROFILE 12/16/2020 T4 (THYROXINE) 12/16/2020 TSH (THYROID STIMULATING HORMONE) 2020 CBC w DIFF 12/16/2020 CELIAC PANEL #10 08/18/2017 US ABD 08/18/2017 Future Test Test Name Order Date UPPER GI ENDOSCOPY 08/18/2017 COLONOSCOPY 08/18/2017 Insurance Providers Payer Name Payer Address Payer Phone Subscriber Number Group Number Insured Name Patient Relationship to Insured Coverage Start Date Coverage End Date MEDICA[employer] OF [employer] [address] [place] [phone] [id number] ANA ARRIAZA Self - patient is the insured MEDICAL (GENERAL) HISTORY Medical History History ICD Code Posiitive hepatitis C antibody but neg. hepatitis C viral load in 06/2017 Cervical cancer--Stage III-treated surgi courtney--? of a LEEP Denies UT,DM,CVA,Lung disease,renal dise ase ? of Bleeding ulcer--coffee grounds--never had EGD--treated with meds--at [facility] [place] IBS--seen at [place]--duod enal biopsies and celiac disease labs were negative in 2018 Scoliosis RA Anxiety/depression/bipolar disease GERD--EGD--09/2017--small hia shawn hernia, Lola esophagitis treated with Diflucan. Colonoscopy 09/2017--no infla mmatory bowel disease and biopsies from the terminal ileum and colon were unremarkable Lola esophagitis as above Surgical History Surgery Date(Month/Year) Ectopic 2004 2005 Appendectomy 2007 C-spine disc surgery-- Dr. Burrows 2017
[2024-08-03 09:51] VITALS: BP 129/84; PULSE 80; RESP 18; TEMP 37; O2SAT 94
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
[2024-08-03 10:14] LABS: UPreg QC Valid YES; Urine Pregnancy NEGATIVE (NEGATIVE)
[2024-08-03] MEDS: Lactated Ringers 1,000 ML 100 ML IVCONT (10:17)
[2024-08-03 11:12] VITALS: BP 133/74; PULSE 50; RESP 12; TEMP 36.1; O2SAT 97
[2024-08-03 11:15] VITALS: BP 168/88; PULSE 61; RESP 14; O2SAT 94
[2024-08-03 11:20] VITALS: BP 146/84; PULSE 52; RESP 14; O2SAT 92
[2024-08-03 11:25] VITALS: BP 144/74; PULSE 61; RESP 18; O2SAT 92
[2024-08-03] MEDS: cefTRIAXone sodium 1 GM VIAL IVPUSH (11:34)
[2024-08-03 11:40] VITALS: BP 129/69; PULSE 61; RESP 16; TEMP 36.1; O2SAT 94
--- NOTE | 2024-08-03 11:49 | PM.OP ---
Brief Operative Note Date of Service: 08/03/24 Pre-op diagnosis: Left knee medial meniscus tear, left knee degenerative joint disease Post-op diagnosis: same Procedure: Left knee arthroscopic partial medial meniscectomy, left knee arthroscopic chondroplasty of the undersurface of the patella Implants: none Surgeon: Paul Calderon MD Anesthesia: GLMA Was an Technical Implementation Lead used for this Procedure?: No Estimated blood loss (mL): 10 Pathology: none sent Condition: stable Disposition: PACU
--- NOTE | 2024-08-03 11:50 | P.OP_ITS ---
Operative Note Operative Note Date of Service: 08/03/24 Narrative: After the patient was identified as Angela Oneill and her left knee was initialed by myself they were brought to the operating room where general anesthesia was induced by the anesthesiologist in routine fashion. The patient was given 2 g of IV Ancef preoperatively for infection prophylaxis. The patient's left lower extremity was prepped and draped in sterile fashion. A formal time-out was completed. Marcaine was injected into the planned incision sites as well as the patient's left knee joint. A #11 scalpel blade was used to make an anterolateral portal 1 cm proximal to the joint line and 1 cm lateral to the patellar tendon. Blunt trocar technique was used to enter the suprapatellar pouch with the knee in extension. Diagnostic arthroscopy showed multiple bands of thickened plica which would be excised at the end of the procedure. There were no loose bodies or abnormalities found in either the medial or lateral gutters. The articular surface of the patella showed diffuse grades 1 and 2 degenerative changes. The trochlear groove articular surface showed diffuse grade 1 degenerative changes. The patient's knee was flexed to 45 degrees and a valgus force was placed upon it. The medial compartment was entered. An anteromedial portal was made 1 cm proximal to the joint line and 1 cm medial to the patellar tendon. Probing of the medial meniscus showed a radial tear of the anterior horn. A partial medial meniscectomy was performed using the arthroscopic shaver. Following the partial meniscectomy the remainder of the meniscus tissue was stable. There were diffuse grade 1 degenerative changes of the medial femoral condyle as well as grade 1 degenerative changes of the medial tibial plateau. There was no injury to the anterior cruciate ligament. The patient's knee was then placed in the figure of 4 position and the lateral compartment was entered. There was no evidence of lateral meniscus tearing. There were minimal degenerative changes of the lateral femoral condyle and lat eral tibial plateau. The patient's knee was once again brought into extension and the suprapatellar pouch was entered. The arthroscopic shaver and the ArthroCare Wand were used to excise the thickened bands of plica. The undersurface of the patella was then made smooth using the arthroscopic shaver. The articular surface of the trochlear groove was already smooth so no chondroplasty was indicated. The knee joint was irrigated and then drained. All arthroscopic instruments were removed. The 2 portals were closed with 3-0 nylon interrupted suture. The knee joint was injected with Marcaine. Dry sterile dressing and Wil bandages were placed over the patient's knee. The patient was awoken and extubated in the operating room. The patient was transferred to the recovery room in stable condition.
== END 2024-08-03 12:21 | disposition home or self-care (01) ==
PROVIDERS: Nurse Practitioner; PCP Student in an Organized Health Care Education/Training Program; Visit Provider Orthopaedic Surgery
PROC: (CPT 29870; principal; 2024-08-03 10:30)
DX: S83.242A Other tear of medial meniscus, current injury, left knee, initial encounter (principal); M17.12 Unilateral primary osteoarthritis, left knee; G89.29 Other chronic pain; M25.562 Pain in left knee; M23.52 Chronic instability of knee, left knee; M67.52 Plica syndrome, left knee; M32.9 Systemic lupus erythematosus, unspecified; M46.46 Discitis, unspecified, lumbar region; E05.90 Thyrotoxicosis, unspecified without thyrotoxic crisis or storm; S24.0XXA Concussion and edema of thoracic spinal cord, initial encounter; V49.69XA Unspecified car occupant injured in collision with other motor vehicles in traffic accident, initial encounter; Y93.9 Activity, unspecified; Y92.414 Local residential or business street as the place of occurrence of the external cause; Y99.9 Unspecified external cause status; F11.20 Opioid dependence, uncomplicated; Z79.1 Long term (current) use of non-steroidal anti-inflammatories (NSAID); Z79.899 Other long term (current) drug therapy; Z88.1 Allergy status to other antibiotic agents; Z88.8 Allergy status to other drugs, medicaments and biological substances
CPT/HCPCS: 29881; 81025; J0171; J0690; J0696; J1100; J1885; J2003; J2250; J2405; J2704; J2795; J3010

== ENCOUNTER → 2024-08-03 09:10 | Outpatient (BNV) | payer OTHER, MEDICAID, SELFPAY | PROVIDERS: PCP Student in an Organized Health Care Education/Training Program; Visit Provider Orthopaedic Surgery | DX: S83.242A Other tear of medial meniscus, current injury, left knee, initial encounter (principal) | CPT/HCPCS: 29881 ==

== ENCOUNTER 2024-08-14 09:23 | Outpatient (AMB) | payer OTHER, MEDICAID, SELFPAY ==
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
--- OUTSIDE RECORDS SUMMARY | 2024-08-14 10:10 | XMS_ITS | Encounter Summary ---
Author Organization [employer] Address [address] [place] [address] Care Team Providers Care Vice Provost Name Role Phone Reyna Rodriguez MD Primary Care Provide r Encounter Details Date Type Department Care Team ([facility] st Contact Info) Description 07/21/2024 Orders Only [facility] [address] [place] [address] Provider, MD Jeff Social History Tobacco Use Types Packs/Day Years Used Date Smoking Tobacco: Every Day Cigarettes Passive Smoke Exposure: Current Smokeless Tobacco: Never Alcohol Use Standard Drinks/Week Comments Never 0 (1 standard drink = 0.6 oz pur e alcohol) Housing Stability Answer Date Recorded What is your housing situation today? I have aimee palma 04/11/[address] you li ve. Do you have problems with any of the following? None of the above 04/11/2023 Food Insecurity Answer Date Recorded Within the past 12 months, y ou worried that your food would run out before you got money to buy more: Never True 06/06/2023 Within the past 12 months,th e food you bought just didn't last and you didn't have enough money to get more: Never True 04/2023 Transportation Answer Date Recorded In the past 12 months, has l ack of transportation kept you from medical appts, meetings, work or from getting things needed for daily living? No 04/11/2023 Utilities Answer Date Recorded In the past 12 months, has t he electric, gas, oil or water company threatened to shut off services in your home? No 04/11/2023 Internet Access Answer Date Recorded Internet Access Q1 Yes 04/23/2024 Internet Access Q2 Not on file 04/23/2024 Comments Unknown Sex and Gender Information Value Date Recorded Sex Assigned at Female 04/26/2022 10:34 AM EDT Legal Sex Female 10:34 AM EDT Gender Identity Female 04/26/2022 10:34 AM EDT Sexual Orientation Straight 04/26/2022 10 :34 AM EDT documented as of this encounter Plan of Treatment Upcoming Encounters Date Type Department Care Team (Late st Contact Info) Description 08/27/2024 9:00 AM EST Office Visit [facility] [address] [place] [address] Reyna Rodriguez MD [address] [place], [place] [phone] documented as of this encounter Procedures Procedure Name Priority Date/Time Associated Diagnosis Comments HM PAP/HPV Routine 12/23/2022 5:30 PM EDT documented in this encounter Results * HM PAP/HPV (12/23/2022 5:30 PM EDT) Historical Provider HEALTH MAINTENANCE Final Result [facility] [address] [place] [address] documented in this encounter Visit Diagnoses Not on filedocumented in this encounter Care Teams Vice Provost Relationship Specialty Start Date End Date Reyna Rodriguez MD [address] [place] [address] [phone] PCP - General Family Medicine 05/26/18 documented as of this encounter
--- OUTSIDE RECORDS SUMMARY | 2024-08-14 10:10 | XMS_ITS | Encounter Summary ---
Author Organization [employer] Address [address] [place] [address] 7 [place] [address] Care Team Providers Care Group Care Worker Name Role Phone Ryena Rodriguez MD Primary Care Provide r Reason for Visit * Reason Onset Date Comments Med Refill 10/21/2022 Encounter Details Date Type Department Care Team ([facility] Contact Info) Description 10/21/2022 Telephone [facility] MEDICINE [address] [place] [address] Reyna Rodriguez MD [address] [place] [address] Med Refill Social History Tobacco Use Types Packs/Day Years Used Date Smoking Tobacco: Never Assessed Comments Unknown Sex and Gender Information Value Date Recorded Sex Assigned at Female 04/26/2022 10:34 AM EDT Legal Sex Female 10:34 AM EDT Gender Identity Female 04/26/2022 10:34 AM EDT Sexual Orientation Straight 04/26/2022 10 :34 AM EDT documented as of this encounter Miscellaneous Notes * Telephone Encounter - Julisa De Luna LPN - 10/21/2022 2:44 PM EDT Medication pended to PCP awaiting approval. * Telephone Encounter - Emery Warner - 10/21/2022 2:35 PM EDT Tc from pt requesting med refill Pantoprazole 40 mg documented in this encounter Plan of Treatment Upcoming Encounters Date Type Department Care Team (Late st Contact Info) Description 08/27/2024 9:00 AM EST Office Visit [facility] MEDICINE [address] [place] [address] Reyna Rodriguez MD [address] [place], [place] [phone] documented as of this encounter Visit Diagnoses Not on filedocumented in this encounter Care Teams Group Care Worker Relationship Specialty Start Date End Date Reyna Rodriguez MD [address] [place] [phone] PCP - General Family Medicine 05/26/18 documented as of this encounter
--- OUTSIDE RECORDS SUMMARY | 2024-08-14 10:10 | XMS_ITS | Encounter Summary ---
Author Organization [employer] Address [address] [place] [address] 7 [place] [address] Care Team Providers Care Hvac Services Professional Name Role Phone Reyna Rodriguez MD Primary Care Provide r Encounter Details Date Type Department Care Team (Late st Contact Info) Description 10/07/2022 Orders Only [facility] MED & PEDS [address] [place], [place] [phone] Julisa De Luna LPN Social History Tobacco Use Types Packs/Day Years [...] Encounters Date Type Department Care Team (Late Contact Info) Description 08/27/2024 9:00 AM EST Office Visit [facility] MEDICINE [address] [place] [address] Reyna Rodriguez MD [address] [place] [address] documented as of this encounter Visit Diagnoses Not on filedocumented in this encounter Care Teams Hvac Services Professional Relationship Specialty Start Date End Date Reyna Rodriguez MD [address] [place], [place] [phone] PCP - General Family Medicine 05/26/18 documented as of this encounter
--- OUTSIDE RECORDS SUMMARY | 2024-08-14 10:10 | XMS_ITS | Encounter Summary ---
Author Organization [employer] Address [address] [facility] 7t [place] [address] Care Team Providers Care Retail Security Professional Name Role Phone Reyna Rodriguez MD Primary Care Provide r Encounter Details Date Type Department Care Team ([facility] Contact Info) Description 08/03/2024 Orders Only GENERIC EXTERNAL DATA DEPARTMENT Provider, Generic External Data Social History Tobacco Use Types Packs/Day Years [...] Description 08/27/2024 9:00 AM EST Office Visit [facility] MEDICINE [address] [place] [address] Reyna Rodriguez MD [address] [place] [address] documented as of this encounter Procedures Procedure Name Priority Date/Time Associated Diagnosis Comments HCG, QL, URINE Routine 08/03/2024 9:35 AM EST documented in this encounter Results * HCG, Qualitative, Urine (08/03/2024 9:35 AM EST) Urine NEGATIVE NEGATIVE [facility] Comment:This test was develo ped to detect early . Falsenegative results may occur after the 5th - 7th week ofpregnancy when using this test method. If clinicallyindicated, consider a serum hCG. 08/03/2024 9:35 AM EST 08/03/2024 10:09 AM EST us Generic External Data Provider LAB URINE ORDERAB LES Final Result [facility] [address] [place] [address] [phone] documented in this encounter Visit Diagnoses Not on filedocumented in this encounter Care Teams Retail Security Professional Relationship Specialty Start Date End Date Reyna Rodriguez MD [address] [place] [address] PCP - General Family Medicine 05/26/18 documented as of this encounter
--- OUTSIDE RECORDS SUMMARY | 2024-08-14 10:10 | XMS_ITS | Encounter Summary ---
Author Organization [employer] Address [address] [facility] 7t [place] [address] Care Team Providers Care Medical Program Specialist Name Role Phone Reyna Rodriguez MD Primary Care Provide r Reason for Visit * Reason Comments Med Refill Encounter Details Date Type Department Care Team ([facility] Contact Info) Description 07/29/2024 Refill [facility] MEDICINE [address] [place], [place] [phone] Reyna Rodriguez MD [address] [place], [place] [phone] Gastroesophageal reflux disease without esophagitis Social History Tobacco Use Types Packs/Day Years [...] Description 08/27/2024 9:00 AM EST Office Visit [facility] MEDICINE [address] [place], [place] [phone] Reyna Rodriguez MD [address] [place] [address] documented as of this encounter Visit Diagnoses Diagnosis Gastroesophageal reflux disease without esophagitis Esophageal reflux documented in this encounter Care Teams Medical Program Specialist Relationship Specialty Start Date End Date Reyna Rodriguez MD [address] [place], [place] [phone] PCP - General Family Medicine 05/26/18 documented as of this encounter
--- OUTSIDE RECORDS SUMMARY | 2024-08-14 10:10 | XMS_ITS | Encounter Summary ---
Author Organization [employer] Address [address] [facility] [address] 7[address] [place] [address] Care Team Providers Care Fabric Worker Supervisor Name Role Phone Reyna Rodriguez MD Primary Care Provide r Encounter Details Date Type Department Care Team ([facility] st Contact Info) Description 07/08/2023 Abstract [facility] MEDICINE [address] [place] [address] Reyna Rodriguez MD [address] [place], [place] [phone] Social History Tobacco Use Types Packs/Day Years Used Date Smoking Tobacco: Never Assessed Housing Stability Answer Date Recorded What is [...] off services in your home? No 04/11/2023 Comments Unknown Sex and Gender Information Value [...] Description 08/27/2024 9:00 AM EST Office Visit [facility] MEDICINE [address] [place], [place] [phone] Reyna Rodriguez MD [address] [place] [address] documented as of this encounter Visit Diagnoses Not on filedocumented in this encounter Care Teams Fabric Worker Supervisor Relationship Specialty Start Date End Date Reyna Rodriguez MD [address] [place] [phone] PCP - General Family Medicine 05/26/18 documented as of this encounter
--- OUTSIDE RECORDS SUMMARY | 2024-08-14 10:10 | XMS_ITS | Encounter Summary ---
Author Organization [employer] Address [address] [facility] 7 [place] [address] Care Team Providers Care Culled Fruit Packer Name Role Phone Reyna Rodriguez MD Primary Care Provide r Reason for Visit * Reason Onset Date Comments Med Refill 09/10/2022 Encounter Details Date Type Department Care Team ([facility] Contact Info) Description 09/10/2022 Telephone [facility] MEDICINE [address] [place] [address] Reyna Rodriguez MD [address] [place] [address] Med Refill Social History Tobacco Use Types [...] Encounter - Julisa De Luna LPN - 09/10/2022 1:25 PM EDT Medication pended to provider awaiting approval. * Telephone Encounter - Dulce Blackwood Puma - 09/10/2022 12:20 PM EDT Tc from pt requesting med refill on gabapentin (Neurontin) 800 MG tablet Please sent to [facility]/pharmacy #[id number] - [place] - [address] [facility] documented in this encounter Plan of Treatment Upcoming Encounters Date Type Department Care Team (Late st Contact Info) Description 08/27/2024 9:00 AM EST Office Visit [facility] MEDICINE [address] [place] [address] Reyna Rodriguez MD [address] [place] [address] documented as of this encounter Visit Diagnoses Not on filedocumented in this encounter Care Teams Culled Fruit Packer Relationship Specialty Start Date End Date Reyna Rodriguez MD [address] [place] [phone] PCP - General Family Medicine 05/26/18 documented as of this encounter
--- OUTSIDE RECORDS SUMMARY | 2024-08-14 10:10 | XMS_ITS | Encounter Summary ---
Author Organization [employer] [facility] Address [address] [place] [address] [place] [address] Care Team Providers Care Interior Design Faculty Member Name Role Phone Reyna Rodriguez MD Primary Care Provide r Reason for Visit * Reason Comments Med Refill Encounter Details Date Type Department Care Team ([facility] Contact Info) Description 01/11/2023 Refill [facility] MEDICINE [address] [place] [phone] Reyna Rodriguez MD [address] [place] [address] [phone] Chronic back pain, unspecified back location, unspecified back pain laterality Social History Tobacco Use Types Packs/Day Years [...] Upcoming Encounters Date Type Department Care Team ([facility] Contact Info) Description 08/27/2024 9:00 AM EST Office Visit [facility] MEDICINE [address] [place] [phone] Reyna Rodriguez MD [address] [place] [phone] documented as of this encounter Visit Diagnoses Diagnosis Chronic back pain, unspecified back location, unspecified back pain laterality documented in this encounter Care Teams Interior Design Faculty Member Relationship Specialty Start Date End Date Reyna Rodriguez MD [address] [place] [phone] PCP - General Family Medicine 05/26/18 documented as of this encounter
--- OUTSIDE RECORDS SUMMARY | 2024-08-14 10:11 | XMS_ITS | Patient Health Record ---
Author Organization [facility] Address [address] [place] [address] Care Team Providers Care Senior Ios Developer Name Role Phone Reyna Izquierdo M.D. Primary Care Provider Roddy Murray Unavailable [phone] ALLERGIES Allergen (clinical drug ingredient) Drug/Non Drug [...] esophagitis presence not specified (K21.9) Active confirmed 402377789 Problem Irritable bowel syndrome with both constipation and diarrhea (K58.2) Active confirmed 90222399 Problem Diarrhea, unspecified type (R19.7) Active confirmed 88868066 Problem Non-intractable vomiting without nausea, unspecified vomiting type (R11.11) Active confirmed 830660377 Problem Non-intractable vomiting with nausea, unspecified vomiting type (R11.2) Active confirmed 58580319 Problem Constipation, unspecified constipation type (K59.00) Active confirmed 22563771 PLAN OF TREATMENT Pending Test Test Name [...] Start Date Coverage End Date MEDICAID OF [place] [address] [place]AKER [phone] [id number] ANA ARRIAZA Self - patient is the insured MEDICAL (GENERAL) HISTORY Medical History History ICD Code Posiitive hepatitis C antibody but neg. hepatitis C viral load in 06/2017 Cervical cancer--Stage III-treated surgi courtney--? of a LEEP Denies AL,DM,CVA,Lung disease,renal dise ase ? of Bleeding ulcer--coffee grounds--never had EGD--treated with meds--at [facility]--seen at [facility]--duod enal biopsies and celiac disease labs were [...]
--- OUTSIDE RECORDS SUMMARY | 2024-08-14 10:11 | XMS_ITS | Clinical Summary ---
Author Organization [employer] Address [address] [place] [address] Care Team Providers Care Mobile Crane Operator Name Role Phone Reyna Rodriguez MD Primary Care Provide r Allergies Active Allergy Reactions Criticality Noted Date Comments Acetaminophen 05/26/2018 Cinnamon 03/25/2021 Ciprofloxacin 05/26/2018 Ibuprofen 03/25/2021 Metronidazole 04/11/2023 Other reaction(s): Rash Paroxetine 05/26/2018 Tramadol 05/26/2018 Medications Aspirin Low Dose 81 MG EC tablet Take 162 mg by mouth in the morning. 12/24/19 23 Active hydroxychloroqu ine (Plaquenil) 200 MG tablet Take 1 tablet by mouth in the morning. 03/10/20 23 Active progesterone [address] CAPSULE VAGINALLY EVERY DAY AT BEDTIME 03/17/20 23 Active Vit-Fe Fumarate-FA ( Vitamins) 28-0.8 MG tabletIndicatio ns:Recurrent major depressive disorder, in partial remission (CMS/HCC) TAKE 1 TABLET BY MOUTH EVERY DAY 90 tablet 3 02/02/20 24 Active gabapentin (Neurontin) 800 MG tabletIndicatio ns:Chronic back pain, unspecified back location, unspecified back pain laterality TAKE 1 TABLET BY MOUTH FOUR TIMES A DAY 120 tablet 1 03/09/20 24 Active gabapentin (Neurontin) 600 MG tabletIndicatio ns:Chronic neck pain Take 2 tablets (1,200 mg) by mouth 3 times daily. 180 tablet 11 04/16/20 24 025 Active citalopram (CeleXA) 40 MG tabletIndicatio ns:Mood disorder (CMS/HCC) TAKE 1 TABLET BY MOUTH EVERY DAY IN THE MORNING 30 tablet 1 07/04/19 25 Active omeprazole (PriLOSEC) [address] capsuleIndicati ons:Gastroesoph ageal reflux disease without esophagitis TAKE 1 CAPSULE BY MOUTH BEFORE BREAKFAST. DO NOT CRUSH OR CHEW. 90 capsule 07/30/19 25 Active omeprazole (PriLOSEC) [address] capsuleIndicati ons:Gastroesoph ageal reflux disease without esophagitis Take 1 capsule (40 mg) by mouth before breakfast. Do not crush or chew. 90 capsule 1 01/19/20 24 025 Discontinued Active Problems Problem Noted Date Diagnosed Date Hyperthyroidism 05/23/2024 Chronic left shoulder pain 05/22/2024 Chronic pain of left knee 05/22/2024 Encounter for preventive care 05/21/2024 Assessment & Plan (05/21/2024 5:18 PM EST): See HPI Other forms of systemic lupus erythematosus 04/28 Assessment & Plan (05/21/2024 5:18 PM EST): On plaquenil, continue to follow with instructor ground services Dr Chicas Chronic neck pain 04/16/2024 Assessment & Plan (04/16/2024 4:34 PM EDT): Patient declines pain management referral Gabapentin dose increase to max dose which is 1200mg TID Lumbar discitis 08/02/2023 08/02/2023 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 04/14/2023 Mood disorder 04/14/2023 04/14/2023 Opioid dependence 04/14/2023 04/14/2023 Pyelonephritis 04/14/2023 Assessment & Plan (04/14/2023 10:02 AM EDT): Drink plenty of water do not hold urine Patient already completed antibiotic regimen prescribed at the hospital Patient reports she will get her urine test again today Just in case I will also put an order in for UA and culture I also university counselor patient and let her know she can always come to our [facility] Hospital discharge follow-up 04/14/2023 Assessment & Plan (04/14/2023 10:03 AM EDT): Medications where reviewed Gastroesophageal reflux disease without esophagi tis 04/14/2023 Encounters Date Type Department Care Team Description 08/14/2024 Patient Outreach [facility] [place] [address] Reyna Rodriguez MD Pre-visit Planning ((SDOH screening positive tobacco screening positive)) 08/03/2024 Orders Only GENERIC EXTERNAL DATA DEPARTMENT Provider, Generic External Data 07/29/2024 Refill [facility] [address] [place] [address] Reyna Rodriguez MD Gastroesophageal reflux disease without esophagitis 07/21/2024 Orders Only [facility] [address] [place] [phone] Jeff Rae MD 07/05/2024 Orders Only GENERIC EXTERNAL DATA DEPARTMENT Provider, Generic External Data 07/04/2024 Refill [facility] [address] [place] [address] Reyna Rodriguez MD Mood disorder (CMS/[facility]) 06/03/2024 Refill [facility] [address] [place] [address] Robbin, 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, 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 Chronic back pain, unspecified back location, unspecified back pain laterality 05/23/2024 Telephone [facility] [address] [place] [phone] Génesis Mendiola RN Results 05/23/2024 Orders Only [facility] [address] [place] [phone] Reyna Rodriguez MD Hyperthyroidism (Primary Dx) 05/22/2024 11:15 AM EST Office Visit [facility] [address] [place] [phone] Reyna Rodriguez MD Chronic left shoulder pain (Primary Dx); Chronic pain of left knee 05/22/[address] [address] Génesis Lazo RN Care Management ([facility] Graduation) 05/22/2024 Orders Only [facility] [address] [facility] [place] [address] Reyna Rodriguez MD 05/22/2024 Travel 05/21/2024 2:00 PM EST Office Visit [facility] [address] [facility] [place] [address] Reyna Rodriguez MD Encounter for preventive care (Primary Dx); Other forms of systemic lupus erythematosus, unspecified organ involvement status (CMS/HCC) 05/21/2024 Travel from Last 3 Months Immunizations Name Administration Dates Next Due HPV, Quadrivalent 08/08/2007,04/12/2007,02/08/20 07 Hep A, Adult 04/17/2014 Hep B Immune Globulin 04/23/2015 Hep B, adult 04/23/2015 Influenza injectable quadriv alent preservative free 03/25/2021,04/02/2020 Influenza, IIV3, injectable 03/24/2023,1 ,03/15/2014,04/18,04/19/2012,06/23/2010,03/13/2009 Influenza, seasonal, injecta ble, preservative free 04/16/2024,05/27/2016 Pneumococcal Polysaccharide PPSV23 05/27/2016 Tdap 03/24/2023,01/01/2010 Social History Tobacco Use Types Packs/Day Years Used Date Smoking Tobacco: Every Day Cigarettes Passive Smoke Exposure: Current Smokeless Tobacco: Never Tobacco Cessation:Ready to Q uit: Not Asked; Counseling Given: Not Answered Alcohol Use Standard Drinks/Week Comments Never 0 [...] Orientation Straight 04/26/2022 10 :34 AM EDT Last Filed Vital Signs Vital Sign Reading Time Taken Comments Blood Pressure 149/80 05/22/2024 10:53 AM EST Pulse 87 05/22/2024 10:53 AM EST Temperature 36.4 ??C (97.6 ??F) 05/22/2024 10:[address] Respiratory Rate 18 05/22/2024 10:53 AM EST Oxygen Saturation 96% 05/22/2024 10:53 AM EST Inhaled Oxygen Concentration - - Weight 105 kg (230 lb 12.8 oz) 05/22/2024 10:53 AM EST Height 172.7 cm (5' 8 ) 05/22/2024 10:53 AM EST Body Mass Index 35.09 05/22/2024 10:53 AM EST Plan of Treatment Upcoming Encounters Date Type Department Care Team (Late st Contact Info) Description 08/27/2024 9:00 AM EST Office Visit [facility] [address] [place] [address] Reyna Rodriguez MD [address] [place] [address] Health Maintenance Due Date Last Done Comments Depression Screening 1986 Family Planning (PISQ) 2001 Hepatitis A Vaccines (2 of 2 - Risk 2-dose series) 10/16/2014 04/17/2014 Hepatitis B Vaccines (2 of 3 - 19+ 3-dose series) 05/21/2015 04/23/2015 Pneumococcal Vaccine: Pediatrics (0 to 5 Years) and At-Risk Patients (6 to 49) Years) (2 of 2 - PCV) 05/27/2017 05/27/2016 COVID-19 Vaccine ( - season) 2024 Alcohol/Substance Use Screening 04/16/2025 04/16/2024 Tobacco Screening 04/16/2025 04/16/2024 SDOH Screening 04/23/2025 04/23/2024 Cervical Cancer Screening 12/24/2027 HPV/Cotest 12/24/2027 Pap Smear 12/24/2027 12/23/2022 Lipid Panel 05/22/2029 05/22/2024, 03/25/2021 DTaP/Tdap/Td Vaccines (3 - Td or Tdap) 03/24/2033 03/24/2023, 01/01/2010 Zoster Vaccines (1 of 2) 2036 RSV Patients and Patients Aged 60 years or older (1 - 1-dose 75+ series) 2061 HPV Vaccines Completed 08/08/2007, 03/27, 02/07/2007 Influenza Vaccine Completed 04/16/2024, , 03/25/2021, Additional history exists HIV Screening Completed 05/22/2024, 03/25/2021 HIB Vaccines Aged Out No longer eligi ble based on patient's age to complete this topic IPV Vaccines Aged Out No longer eligi ble based on patient's age to complete this topic Meningococcal Vaccine Aged Out No samantha ailyn eligible based on patient's age to complete this topic RSV under 20 months Aged Out No longe r eligible based on patient's age to complete this topic Rotavirus Vaccines Aged Out No longer eligible based on patient's age to complete this topic Procedures Procedure Name Priority Date/Time Associated Diagnosis Comments HCG, QL, URINE Routine 08/03/2024 9:35 AM EST TRAB (TSH RECEPTOR BINDING ANTIBODY) Routine 07/05/2024 10:37 AM EST TSI (THYROID STIMULATING IMMUNOGLOBULIN) Routine 07/05/2024 10:37 AM EST THYROID PEROXIDASE ANTIBODIES Routine 07/05/2024 10:37 AM EST T3, TOTAL Routine 07/05/2024 10:37 AM EST TSH Routine 07/05/2024 10:37 AM EST T4, FREE Routine 07/05/2024 10:37 AM EST MR KNEE WO CONTRAST LEFT Routine 06/01/2024 Chronic pain of left knee HEPATITIS C VIRAL RNA, QUANTITATIVE, REAL-TIME PCR Routine 05/22/2024 10:25 AM EST T4, FREE Routine 05/22/2024 10:25 AM EST TSH W/REFLEX TO FT4 Routine 05/22/2024 1 0:25 AM EST Encounter for preventive care VITAMIN D,25-OH,TOTAL,IA Routine 05/22/2024 10:25 AM EST Encounter for preventive care LIPID PANEL, STANDARD Routine 05/22/2024 10:25 AM EST Encounter for preventive care HEPATITIS C AB W/REFL TO HCV RNA, QN, PCR Routine 05/22/2024 10:25 AM EST Encounter for preventive care HIV 1/2 ANTIGEN/ANTIBODY, FOURTH GENERATION W/RFL Routine 05/22/2024 10:25 AM EST Encounter for preventive care HEMOGLOBIN A1C Routine 05/22/2024 10:25 AM EST Encounter for preventive care COMPREHENSIVE METABOLIC PANEL Routine 05/22/2024 10:25 AM EST Encounter for preventive care CBC WITH AUTO DIFFERENTIAL Routine 05/22/2024 10:25 AM EST Encounter for preventive care HM PAP/HPV Routine 12/23/2022 5:30 PM EDT from Last 3 Months or Most Recently Relevant to Health Maintenance Results * HCG, Qualitative, Urine (08/03/2024 9:35 AM EST) Urine NEGATIVE NEGATIVE [facility] Comment:This test was develo ped to detect early . Falsenegative results may occur after the 5th - 7th week ofpregnancy when using this test method. If clinicallyindicated, consider a serum hCG. 08/03/2024 9:35 AM EST 08/03/2024 10:09 AM EST Generic External Data Provider LAB URINE ORDERAB LES Final Result Performing Organization Address [facility] Co de Phone Number [facility] [address] [place] [phone] * (ABNORMAL) Thyroid Peroxidase Antibodies (07/05/2024 10:37 AM EST) Pathologist [facility] Thyroid Peroxidase Antibodies 51(A) <9 IU/mL [facility] Comment:THIS TEST WAS PERFOR MED AT:[employer] [place] [phone] IBARRA MD 07/05/2024 10:3 7 AM EST 07/05/2024 10:37 AM EST Generic External Data Provider LAB BLOOD ORDERAB LES Final Result Performing Organization Address [facility] Co de Phone Number [facility] [address] [place] [phone] * TSI (Thyroid Stimulating Immunoglobulin) (07/05/2024 10:37 AM EST) Pathologist [facility] Thyroid Stimulating Immunoglobulin <89 <140 % baseline [facility] Comment: Thyroid stimulating immunoglobulins (TSI) can engagethe TSH receptors resulting in hyperthyroidism inGraves' disease patients. TSI levels can be useful inmonitoring the clinical outcome of Graves' disease aswell as assessing the potential for hyperthyroidismfrom maternal- transfer. TSI results greater thanor equal to (>=) 140% of the Reference Control areconsidered positive.NOTE:A serum TSH level greater than 350 micro-InternationalUnits/mL can interfere with the TSI bioassay andpotentially give false positive results.Patients who are and are suspected of havinghyperthyroidism should have both TSI and humanChorionic Gonadotropin(hCG) tests measured. A serumhCG level greater than 40,625 mIU/mL can interferewith the TSI bioassay and may give false negativeresults. In these patients it is recommended thata second TSI be obtained when the hCG concentrationfalls below 40,625 mIU/mL (usually after dueexylsvltei70-zvqjl gestation).The analytical performance characteristics of thisassay have been determined by [employer] [place]. ??The modificationshave not been cleared or approved by the FDA. ??Thisassay has been validated pursuant to the CLIAregulations and is used for clinical purposes.THIS TEST WAS PERFORMED AT:[employer] [id number] [place], [place] ??[phone] KENDRICK MD,PHD 07/05/2024 10:3 7 AM EST 07/05/2024 10:37 AM EST us Generic External Data Provider LAB BLOOD ORDERAB LES Final Result [facility] [address] [place], [place] [phone] * TRAb (TSH Receptor Binding Antibody) (07/05/2024 10:37 AM EST) TRAb (TSH Receptor Binding Antibody) <1.00 <=2.00 IU/L [facility] Comment:This test was perfor med using the TRAb Antibody ELISAmethod which is standardized against the 1stInternational Standard 90/672 and is reported inInternational Units (IU/L). The reference rangereported was established specifically for this testmethod.THIS TEST WAS PERFORMED AT:[employer] [id number] [place] [phone] KENDRICK MD,PHD 07/05/2024 10:3 7 AM EST 07/05/2024 10:37 AM EST Generic External Data Provider LAB BLOOD ORDERAB LES Final Result Performing Organization Address [facility] de Phone Number [facility] [address] [place] [phone] * T3, Total (07/05/2024 10:37 AM EST) T3, Total 131 76 - 181 ng/dL [facility] Comment:THIS TEST WAS PERFOR MED AT:[employer] [place] [phone] IBARRA MD 07/05/2024 10:3 7 AM EST 07/05/2024 10:37 AM EST Generic External Data Provider LAB BLOOD ORDERAB LES Final Result Performing Organization Address [facility] Phone Number [facility] [address] [place] [phone] * TSH (07/05/2024 10:37 AM EST) Pathologist [facility] Thyroid Stimulating Hormone 0.39 0.32 - 4.0 uIU/mL [facility] Comment:TSH 3rd Generation ( [facility]) 07/05/2024 10:3 7 AM EST 07/05/2024 10:37 AM EST Generic External Data Provider LAB BLOOD ORDERAB LES Final Result Performing Organization Address [facility] de Phone Number [facility] [address] [place] [phone] * T4, Free (07/05/2024 10:37 AM EST) Only the most recent of2 resultswithin the time period is included. Free T4 (Free Thyroxine) 0.92 0.71 - 1.85 ng/dL [facility] 07/05/2024 10:3 7 AM EST 07/05/2024 10:37 AM EST us Generic External Data Provider LAB BLOOD ORDERAB LES Final Result [facility] [address] [place] [address] [phone] * MR Knee w/o Contrast Left (06/01/2024) Anatomical Region Laterality Modality Magnetic Resonan ce Reyna Garcia MD IMG MRI PROCEDURES Ed ited Result - Final * Vitamin D, 25-Hydroxy, Total, Immunoassay (05/22/2024 10:25 AM EST) Vitamin D 25-OH Total 61.1 >30 ng/mL [facility] Comment:Health Based Referen ce Values*< 20 ng/mL [place]57-63 ng/mL Insufficient> 30 ng/mL Sufficient*Taye ATKINSON. N Engl J Med. 2007;357:266-280Care must be taken in interpreting Vitamin D results fromdifferent laboratories and methodologies. Published datademonstrated that results from patients undergoinghemodialysis may show a negative bias when tested withvarious automated 25-OH vitamin D assays when compared toLC-MS/MS.When testing samples from patients whose predominant form ofVitamin D is Vitamin D2, such as patients receiving VitaminD2 supplementation, results that are subtherapeutic shouldbe confirmed with another method such as LC-MS/MS. Blood Venous blood specimen / Unknown 05/22/2024 10:25 AM EST 05/22/2024 11:44 AM EST us Reyna Garcia MD LAB BLOOD ORDERABLES Final Result [facility] [address], [place] [phone] * (ABNORMAL) TSH with Reflex to Free T4 (05/22/2024 10:25 AM EST) TSH reflex Free T4 <0.01(L) 0.32 - 4.0 uIU/mL [facility] Blood Venous blood specimen / Unknown 05/22/2024 10:25 AM EST 05/22/2024 11:44 AM EST Reyna Garcia MD LAB BLOOD ORDERABLES Final Result Performing Organization Address [facility] Co de Phone Number [facility] [address] [place] [phone] * Hepatitis C Viral RNA, Quantitative, Real-Time PCR (05/22/2024 10:25 AM EST) [facility] Hepatitis C Viral Load <15 NOT DETECTED NOT DETECTED IU/mL [facility] HCV Log PCR <1.18 NOT DETECTED NOT DETECTED Log IU/mL [facility] Comment:For additional infor mation, please refer [email or web address].Backand/faq/KSL10l7(This link is being provided for informational/educational purposes only.)THIS TEST WAS PERFORMED AT:[employer] [place] [phone] IBARRA MD 05/22/2024 10:2 5 AM EST 05/23/2024 8:48 AM EST Reyna Garcia MD LAB BLOOD ORDERABLES Final Result Performing Organization Address [facility] de Phone Number [facility] [address] [place] [phone] * CBC auto differential (05/22/2024 10:25 AM EST) [facility] White Blood Count 7.1 4.8 - 10.8 X10*3/uL [facility] Red Blood Count 4.64 4.20 - 5.50 X10*6/uL [facility] Hemoglobin 13.5 12.0 - 16.0 g/dl [facility] Hematocrit 40.5 37.0 - 47.0 % [facility] Mean Corpuscular Volume 87.3 80.0 - 98.0 fL [facility] Mean Corpuscular Hemoglobin 29.1 27.0 - 33.0 pg [facility] Mean Corpuscular HGB Conc 33.3 31.0 - 35.0 g/dl [facility] Red Cell Distribution Width 12.6 11.0 - 16.0 % [facility] Platelet Count 234 160 - 400 X10*3/uL [facility] Mean Platelet Volume 11.8 9.4 - 12.3 fL [facility] Neutrophils Percent Auto 59.5 45 - 73 % [facility] Imm Gran Pct Auto 0.3 0.0 - 0.4 % [facility] Lymphocytes Percent Auto 26.3 20 - 40 % [facility] Monocytes Percent Auto 9.5 2 - 11 % [facility] Eosinophils Percent Auto 3.7 0 - 4 % [facility] Basophils Percent Auto 0.7 0 - 2 % [facility] NRBC Pct Auto 0.0 0.0 - 0.2 /100WBC [facility] Neutrophils Absolute Auto 4.2 2.0 - 8.3 x10*3/uL [facility] Imm Gran Abs Auto 0.02 0.00 - 0.03 X10*3/uL [facility] Lymphocytes Absolute Auto 1.9 1.2 - 4.9 X10*3/uL [facility] Monocytes Absolute Auto 0.7 0.1 - 1.2 X10*3/uL [facility] Eosinophils Absolute Auto 0.3 0.0 - 0.4 X10*3/uL [facility] Basophils Absolute Auto 0.1 0.0 - 0.2 X10*3/uL [facility] NRBC Abs Auto 0.000 0.0 - 0.012 X10*3/uL [facility] Blood Venous blood specimen / Unknown 05/22/2024 10:25 AM EST 05/22/2024 11:44 AM EST us Reyna Garcia MD LAB BLOOD ORDERABLES Final Result [facility] [address] [place] [phone] * (ABNORMAL) Hepatitis C Antibody with Reflex to HCV, RNA, Quantitative, Real- Time PCR (05/22/2024 10:25 AM EST) Hepatitis C Antibody Reactive( A) Nonreactive [facility] Comment:Presumptive evidence of antibodies to HCV. Blood Venous blood specimen / Unknown 05/22/2024 10:25 AM EST 05/22/2024 11:44 AM EST Reyna Garcia MD LAB BLOOD ORDERABLES Final Result Performing Organization Address City/[facility]/ZIP Co de Phone Number [facility] [address] [place] [phone] * HIV-1/2 Antigen and Antibodies, Fourth Generation, with Reflexes (05/22/2024 10:25 AM EST) Pathologist [facility] HIV AB/AG Nonreactive Nonreactive [facility] Comment:HIV-1 p24 Ag and/or HIV-1/HIV-2 Ab not detected.A test result that is nonreactive does not exclude thepossibility of exposure to or infection with HIV-1 and/orHIV-2. Nonreactive results in this assay for individualswith prior exposure to HIV-1 and/or HIV-2 may be due toantigen and antibody levels that are below the limit ofdetection of this assay.The [employer] HIV Ag/Ab Combo assay result andsupplemental assay results should be interpreted inconjunction with the patient's clinical presentation,history and other laboratory results. If the results areinconsistent with clinical evidence, additional testing issuggested to confirm the result. Blood Venous blood specimen / Unknown 05/22/2024 10:25 AM EST 05/22/2024 11:44 AM EST us Reyna Garcia MD LAB BLOOD ORDERABLES Final Result Performing Organization Address City/[facility]/ZIP Co de Phone Number [facility] [address] [place] [phone] * Hemoglobin A1c (05/22/2024 10:25 AM EST) Hemoglobin A1c 5.0 <6.0 % [facility] Comment:Hemoglobin A1C Refer ence Range Adults: 4.8 - 6.0 % Non diabetic: < 6.0 % Goal: < 7.0 %Additional Action Suggested: > 8.0 %Note: Hemoglobin A1c results are invalid for patients with abnormal amounts of HbF. Blood transfusions may impact the HbA1c concentration in the patient sample. Estimated Average Glucose 97 mg/dL [facility] Comment:eAG = Estimated ave rage glucose which is %A1C expressed asaverage glucose, using the formula of the [id number]-[id number] Glucose study (ADAG), Diabetes Care, Vol.31,#8,Jan. 2007 Blood Venous blood specimen / Unknown 05/22/2024 10:25 AM EST 05/22/2024 11:44 AM EST us Reyna Garcia MD LAB BLOOD ORDERABLES Final Result [facility] [address] [place] [phone] * (ABNORMAL) Lipid Panel, Standard (05/22/2024 10:25 AM EST) Triglycerides 109 <150 mg/dL [facility] Comment:Desirable Triglyceri de: less than 150 mg/dLBorderline High Triglyceride 150-199 mg/dLHigh Triglyceride: 200-499 mg/dLVery High Triglyceride: greater than or equal to 5OO mg/dL Cholesterol 156 <200 mg/dL [facility] Comment:Desirable Cholestero l: less than 200 mg/dLBorderline High Cholesterol: 200-239 mg/dLHigh Cholesterol: greater than 239 mg/dL LDL Cholesterol Calculated 106(H) <100 mg/dL [facility] Comment:Desirable LDL: less than 100 mg/dLNear Optimal/Above Optimal LDL: 110- 129 mg/dLBorderline High LDL: 130-159 mg/dLHigh LDL: 160-189 mg/dLVery High LDL: greater than or equal to 190 mg/dL HDL Cholesterol 29(L) >40 mg/dL [facility] Comment:Desirable HDL: great er than 40 mg/dL Note: This HDL assay may give artificially low results in patients with liver disease. Blood Venous blood specimen / Unknown 05/22/2024 10:25 AM EST 05/22/2024 11:44 AM EST us Reyna Garcia MD LAB BLOOD ORDERABLES Final Result [facility] [address] [place] [phone] * (ABNORMAL) Comprehensive Metabolic Panel (05/22/2024 10:25 AM EST) Sodium 134(L) 135 - 145 mmol/L [facility] Potassium 3.6 3.3 - 5.1 mmol/L [facility] Chloride 101 96 - 108 mmol/L [facility] Carbon Dioxide 25 22 - 29 mmol/L [facility] Anion Gap 12 12 - 20 [facility] Urea Nitrogen (BUN) 6(L) 9 - 16 mg/dL [facility] Creatinine, Serum 0.78 0.5 - 1.4 mg/dL [facility] Estimated Glomerular Filt Rate >60 [facility] Comment:Chronic Kidney Disea se: Estimated GFR < 60 mL/min/1.89g5Fqazqs Kidney Disease: Estimated GFR < 15 mL/min/1.73m2 Glucose 128(H) 60 - 115 mg/dL [facility] Calcium 9.2 8.4 - 10.2 mg/dL [facility] Bilirubin, Total 0.2 0.0 - 1.0 mg/dL [facility] Aspartate Amino Transferase 22 5 - 31 U/L [facility] Alanine Aminotransferase 17 0 - 31 U/L [facility] Total Protein 7.5 6.5 - 8.0 g/dL [facility] Albumin Level 4.2 3.5 - 5.0 g/dL [facility] Alkaline Phosphatase 83 39 - 117 U/L [facility] Blood Venous blood specimen / Unknown 05/22/2024 10:25 AM EST 05/22/2024 11:44 AM EST us Reyna Garcia MD LAB BLOOD ORDERABLES Final Result Performing Organization Address City/[facility]/ZIP Co de Phone Number [facility] [address] [place] [address] [phone] * HM PAP/HPV (12/23/2022 5:30 PM EDT) us Historical Provider HEALTH MAINTENANCE Final Result Performing Organization Address [facility] Co de Phone Number [facility] [address] [place] [address] from Last 3 Months or Most Recently Relevant to Health Maintenance Insurance [facility] [employer] * Guarantor: Angela Oneill Account Type Relation to Patient Date of Phone Billing Address Personal/Family Self [address] Care Teams 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
--- OUTSIDE RECORDS SUMMARY | 2024-08-14 10:11 | XMS_ITS | Encounter Summary ---
Author Organization [employer] Address [address] [facility] 7t [place] [address] Care Team Providers Care Hydrogen Plant Operator Name Role Phone Reyna Rodriguez MD Primary Care Provide r Reason for Visit * Reason Comments Pre-visit Planning (SDOH screening posi tive tobacco screening positive) Encounter Details Date Type Department Care Team ([facility] Contact Info) Description 08/14/2024 Patient Outreach [facility] [address] [place] [address] Reyna Rodriguez MD [address] [place] [address] Pre-visit Planning ((SDOH screening positive tobacco screening positive)) Social History Tobacco Use Types Packs/Day Years [...] AM EDT documented as of this encounter Progress Notes * Xenia Pedersen - 08/14/2024 9:07 AM EST CC Xenia placed successful outbound call to patient for pre-visit planning. Patient name and confirmed. Patient confirms appointment date and time, and has transportation arrangements. Biggest concern for appointment at this time is none Appropriate screenings completed in anticipation of appointment. SDOH positive. Patient looking for assistance with pest control for mice issue Referral will be placed. documented in this encounter Plan of Treatment Upcoming Encounters Date Type Department Care Team (Late st Contact Info) Description 08/27/2024 9:00 AM EST Office Visit [facility] [address] [place] [address] Reyna Rodriguez MD [address] [place] [address] documented as of this encounter Visit Diagnoses Not on filedocumented in this encounter Care Teams Hydrogen Plant Operator Relationship Specialty Start Date End Date Reyna Rodriguez MD [address] [place] [phone] PCP - General Family Medicine 05/26/18 documented as of this encounter
--- OUTSIDE RECORDS SUMMARY | 2024-08-14 10:11 | XMS_ITS | Encounter Summary ---
Author Organization [employer] Address [address] [facility] 7t [place] [address] Care Team Providers Care Plum Packer Name Role Phone Reyna Rodriguez MD Primary Care Provide r Reason for Visit * Reason Comments Med Refill Encounter Details Date Type Department Care Team ([facility] Contact Info) Description 06/03/[address] [facility] [address] [place], [place] [phone] [facility] [address] [place] [address] Chronic back pain, unspecified back location, unspecified [...] Description 08/27/2024 9:00 AM EST Office Visit [facility] [address] [place] [phone] Reyna Rodriguez MD [address] [place] [phone] documented as of this encounter Visit Diagnoses Diagnosis Chronic back pain, unspecified back location, unspecified back pain laterality documented in this encounter Care Teams Plum Packer Relationship Specialty Start Date End Date Reyna Rodriguez MD [address] [place] [phone] PCP - General Family Medicine 05/26/18 documented as of this encounter
--- OUTSIDE RECORDS SUMMARY | 2024-08-14 10:11 | XMS_ITS | Encounter Summary ---
Author Organization [employer] Address [address] [facility] 7t [place] [address] Care Team Providers Care Flame Gouger Name Role Phone Reyna Rodriguez MD Primary Care Provide r Reason for Visit * Reason Comments Med Refill Encounter Details Date Type Department Care Team ([facility] Contact Info) Description 03/09/2024 Refill [facility] [address] [place], [place] [phone] Reyna Rodriguez MD [address] [place] [address] Chronic back pain, unspecified back location, unspecified back pain laterality Social History Tobacco Use Types Packs/Day Years Used Date Smoking Tobacco: Every Day Cigarettes Smokeless Tobacco: Never Housing Stability Answer Date Recorded What is [...] Description 08/27/2024 9:00 AM EST Office Visit [facility] [address] [place] [address] Reyna Rodriguez MD [address] [place] [phone] documented as of this encounter Visit Diagnoses Diagnosis Chronic back pain, unspecified back location, unspecified back pain laterality documented in this encounter Care Teams Flame Gouger Relationship Specialty Start Date End Date Reyna Rodriguez MD [address] [place] [phone] PCP - General Family Medicine 05/26/18 documented as of this encounter
== END 2024-08-14 10:09 | disposition home or self-care (01) ==
PROVIDERS: PCP Student in an Organized Health Care Education/Training Program; Visit Provider Physician Assistant
DX: Z98.890 Other specified postprocedural states (principal); S83.242A Other tear of medial meniscus, current injury, left knee, initial encounter
CPT/HCPCS: 99024

== ENCOUNTER → 2024-08-14 09:23 | Outpatient (BNVA) | payer OTHER, MEDICAID, SELFPAY | PROVIDERS: PCP Student in an Organized Health Care Education/Training Program; Visit Provider Physician Assistant ==

== ENCOUNTER 2024-09-18 09:24 | Outpatient (AMB) | payer OTHER, MEDICAID, SELFPAY ==
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
== END 2024-09-18 09:57 | disposition home or self-care (01) ==
LOC: HO.HOS 09:25
PROVIDERS: PCP Student in an Organized Health Care Education/Training Program; Visit Provider Physician Assistant
DX: Z98.890 Other specified postprocedural states (principal)
CPT/HCPCS: 99024

== ENCOUNTER → 2024-09-18 09:24 | Outpatient (BNVA) | payer OTHER, MEDICAID, SELFPAY | PROVIDERS: PCP Student in an Organized Health Care Education/Training Program; Visit Provider Physician Assistant ==

== ENCOUNTER 2024-10-24 08:39 | Outpatient (AMB) | payer OTHER, MEDICAID, SELFPAY ==
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
--- OUTSIDE RECORDS SUMMARY | 2024-10-24 08:55 | XMS_ITS | Encounter Summary ---
Author Organization [employer] Address [address] [facility] 7t [place] [address] Care Team Providers Care Worm Grower Name Role Phone Reyna Rodriguez MD Primary Care Provide r Reason for Visit * Reason Comments Med Refill Encounter Details Date Type Department Care Team ([facility] Contact Info) Description 03/09/2024 Refill [facility] [address] [place], [place] [phone] Reyna Rodriguez MD [address] [place] [address] Chronic back pain, unspecified back location, unspecified [...] Care Team (Late st Contact Info) Description 10/30/2024 9:15 AM EDT Office Visit [facility] [address] [place] [address] Reyna Rodriguez MD [address] [place] [address] documented as of this encounter Visit Diagnoses Diagnosis Chronic back pain, unspecified back location, unspecified back pain laterality documented in this encounter Care Teams Worm Grower Relationship Specialty Start Date End Date Reyna Rodriguez MD [address] [place] [phone] PCP - General Family Medicine 05/26/18 documented as of this encounter
--- OUTSIDE RECORDS SUMMARY | 2024-10-24 08:55 | XMS_ITS | Encounter Summary ---
Author Organization [employer] Address [address] [place] [address] [address] [place] [address] Care Team Providers Care Emergency Department Rn Name Role Phone Reyna Rodriguez MD Primary Care Provide r Reason for Visit * Reason Onset Date Comments Med Refill 10/21/2022 Encounter Details Date Type Department Care Team ([facility] Contact Info) Description 10/21/2022 Telephone [facility] [address] [place] [address] Reyna Rodrgiuez MD [address] [place] [address] Med Refill Social History Tobacco Use Types [...] Description 10/30/2024 9:15 AM EDT Office Visit [facility] [address] [place] [address] Reyna Rodriguez MD [address] [place], [place] [phone] documented as of this encounter Visit Diagnoses Not on filedocumented in this encounter Care Teams Emergency Department Rn Relationship Specialty Start Date End Date Reyna Rodriguez MD [address] [place] [phone] PCP - General Family Medicine 05/26/18 documented as of this encounter
--- OUTSIDE RECORDS SUMMARY | 2024-10-24 08:55 | XMS_ITS | Encounter Summary ---
Author Organization [employer] Address [address] [facility] 7t [place] [address] Care Team Providers Care Groundman Name Role Phone Reyna Rodriguez MD Primary Care Provide r Reason for Visit * Reason Comments Pre-visit Planning Pre visit planning L VM Encounter Details Date Type Department Care Team ([facility] Contact Info) Description 10/23/2024 Patient Outreach [facility] [address] [place] [address] Reyna Rodriguez MD [address] [place] [address] Pre-visit Planning (Pre visit planning LVM ) Social History Tobacco Use Types Packs/Day Years Used Date Smoking Tobacco: Every Day Cigarettes Passive Smoke Exposure: Current Smokeless Tobacco: Never Alcohol Use Standard Drinks/Week Comments Never 0 (1 standard drink = 0.6 oz pur e alcohol) Housing Stability Answer Date Recorded What is your housing situation today? I have aimee palma 08/14/[address] you li ve. Do you have problems with any of the following? Pests such as bugs, ants, or mice 08/14/2024 Food Insecurity Answer Date Recorded Within the [...] as of this encounter Progress Notes * Abby Cullen - 10/23/2024 4:17 PM EDT CC Abby Horan placed outbound call to patient to complete pre-visit planning. No answer at this time.Patient name and were not confirmed. CC left voicemail requesting return call. Direct contact information provided. documented in this encounter Plan of Treatment Upcoming Encounters Date Type Department Care Team (Late st Contact Info) Description 10/30/2024 9:15 AM EDT Office Visit [facility] [address] [place] [address] Reyna Rodriguez MD [address] [place] [address] documented as of this encounter Visit Diagnoses Not on filedocumented in this encounter Care Teams Groundman Relationship Specialty Start Date End Date Reyna Rodriguez MD [address] [place] [address] [phone] PCP - General Family Medicine 05/26/18 documented as of this encounter
--- OUTSIDE RECORDS SUMMARY | 2024-10-24 08:55 | XMS_ITS | Clinical Summary ---
Author Organization [employer] Address [address] [facility] 7t [place] [address] Care Team Providers Care Chiropractic Neurologist Name Role Phone Reyna Rodriguez MD Primary [...] 180 tablet 11 04/16/20 24 025 Active omeprazole (PriLOSEC) [address] capsuleIndicati ons:Gastroesoph ageal reflux disease without esophagitis TAKE 1 CAPSULE BY MOUTH BEFORE BREAKFAST. DO NOT CRUSH OR CHEW. 90 capsule 07/30/19 25 Active citalopram (CeleXA) 40 MG tabletIndicatio ns:Mood disorder (CMS/HCC) TAKE 1 TABLET BY MOUTH EVERY DAY IN THE MORNING 30 tablet 1 09/28/19 25 Active citalopram (CeleXA) 40 MG tabletIndicatio ns:Mood disorder (CMS/HCC) TAKE 1 TABLET BY MOUTH EVERY DAY IN THE MORNING 30 tablet 1 07/04/19 25 025 Discontinued loperamide (Imodium A-D) 2 MG tablet Take 1-2 tablets (2-4 mg) by mouth if needed in the morning, at noon, in the evening, and at bedtime for diarrhea for up to 10 days. 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 Hospital discharge follow-up 04/14/2023 Assessment & Plan (04/14/2023 10:03 AM EDT): Medications where reviewed Gastroesophageal reflux disease without esophagi tis 04/14/2023 Encounters Date Type Department Care Team Description 10/23/2024 Patient Outreach [facility] [address] [place] [phone] Reyna Rodriguez MD Pre-visit Planning (Pre visit planning LVM ) 10/09/2024 Patient Outreach [address] [phone] Reyna Rodriguez MD Care Coordination (Outreach) 10/01/2024 1:20 PM EDT Office Visit [facility] [address] [place] [phone] Name, MD Bishnu Diarrhea, unspecified type (Primary Dx) 09/27/2024 Refill [facility] [address] [place], [place] [phone] Reyna Rodriguez MD Mood disorder ([facility]/HCC) 09/20/2024 Patient Outreach [address] [phone] Reyna Rodriguez MD Care Coordination (Outreach) 09/07/2024 Population Health Risk Score [facility] Department [address] [place] [phone] Provider, Population Health Generic 09/06/2024 Patient Outreach [facility] [address] [place], [place] [phone] Reyna Rodriguez MD Care Coordination (Outreach) 08/29/2024 Patient Outreach [facility] [address] [place], [place] [phone] Reyna Rodriguez MD Care Coordination (Outreach) 08/27/[address] [address] Reyna Rodriguez MD No Show 08/24/2024 Telephone [facility] [address] [place], [place] [phone] Reyna Rodriguez MD Chart Prep 08/17/2024 Patient Outreach [facility] [address] [place], [place] [phone] Renya Rodriguez MD Care Coordination (Outreach) 08/14/2024 Patient Outreach [facility] [address] [place] [address] Reyna Rodriguez MD Pre-visit Planning ((SDOH screening positive tobacco screening positive)) 08/03/2024 Orders Only GENERIC EXTERNAL DATA DEPARTMENT Provider, Generic External Data 07/29/2024 Refill [facility] [address] [place], [place] [phone] Reyna Rodriguez MD Gastroesophageal reflux disease without esophagitis from Last 3 Months Immunizations Name Administration [...] Sign Reading Time Taken Comments Blood Pressure 134/82 10/01/2024 1:03 PM EDT Pulse 67 10/01/2024 1:03 PM EDT Temperature 37.2 ??C (98.9 ??F) 10/01/2024 1:03 PM ED T Respiratory Rate 18 10/01/2024 1:03 PM EDT Oxygen Saturation 98% 10/01/2024 1:03 PM EDT Inhaled Oxygen Concentration - - Weight 105 kg (230 lb 12.8 oz) 10/01/2024 1:03 P M EDT Height 172.7 cm (5' 8 ) 05/22/2024 10:53 AM EST Body Mass Index 35.09 05/22/2024 10:53 AM EST Plan of Treatment Upcoming Encounters Date Type Department Care Team (Late st Contact Info) Description 10/30/2024 9:15 AM EDT Office Visit [facility] [address] [place] [address] [phone] Reyna Rodriguez MD [address] [place] [address] Health Maintenance Due Date Last Done Comments [...] 04/16/2024 Tobacco Screening 04/16/2025 04/16/2024 SDOH Screening 08/14/2025 08/14/2024 Cervical Cancer Screening 12/24/2027 HPV/Cotest 12/24/2027 Pap [...] QL, URINE Routine 08/03/2024 9:35 AM EST HIV 1/2 ANTIGEN/ANTIBODY, FOURTH GENERATION W/RFL Routine 05/22/2024 10:25 AM EST Encounter for preventive care LIPID PANEL, STANDARD Routine 05/22/2024 10:25 AM EST Encounter for preventive care HM PAP/HPV Routine 12/23/2022 5:30 PM EDT from Last 3 Months or Most Recently Relevant to Health Maintenance Results * HCG, Qualitative, Urine (08/03/2024 9:35 AM EST) Urine NEGATIVE NEGATIVE [facility] Comment:This test was develo ped to detect early . Falsenegative results may occur after the 5th - 7th week ofpregnancy when using this test method. If clinicallyindicated, consider a serum hCG. 08/03/2024 9:35 AM EST 08/03/2024 10:09 AM EST us Generic External Data Provider LAB URINE ORDERAB LES Final Result [facility] [address] [place] [phone] * HIV-1/2 Antigen and Antibodies, Fourth Generation, with Reflexes (05/22/2024 10:25 AM EST) HIV AB/AG Nonreactive Nonreactive [facility] Comment:HIV-1 p24 Ag and/or HIV-1/HIV-2 Ab not detected.A test result that is nonreactive does not exclude thepossibility of exposure to or infection with HIV-1 and/orHIV-2. Nonreactive results in this assay for individualswith prior exposure to HIV-1 and/or HIV-2 may be due toantigen and antibody levels that are below the limit ofdetection of this assay.[facility] HIV Ag/Ab Combo assay result andsupplemental assay results should be interpreted inconjunction with the patient's clinical presentation,history and other laboratory results. If the results areinconsistent with clinical evidence, additional testing issuggested to confirm the result. Blood Venous blood specimen / Unknown 05/22/2024 10:25 AM EST 05/22/2024 11:44 AM EST us Reyna Garcia MD LAB BLOOD ORDERABLES Final Result Performing Organization Address [facility] Co de Phone Number [facility] [address] [place] [phone] * (ABNORMAL) Lipid Panel, Standard (05/22/2024 10:25 AM EST) Triglycerides 109 <150 mg/dL [facility] Comment:Desirable Triglyceri de: less than 150 mg/dLBorderline High Triglyceride 150-199 mg/dLHigh Triglyceride: 200-499 mg/dLVery High Triglyceride: greater than or equal to 5OO mg/dL Cholesterol 156 <200 mg/dL [facility] Comment:Desirable Cholestero l: less than 200 mg/dLBorderline High Cholesterol: 200-239 mg/dLHigh Cholesterol: greater than 239 mg/dL LDL Cholesterol Calculated 106(H) <100 mg/dL [facility] Comment:Desirable LDL: less than 100 mg/dLNear Optimal/Above Optimal LDL: 110- 129 mg/dLBorderline High LDL: 130-159 mg/dLHigh LDL: 160-189 mg/dLVery High LDL: greater than or equal to 190 mg/dL HDL Cholesterol 29(L) >40 mg/dL [facility] Comment:Desirable HDL: great er than 40 mg/dL Note: This HDL assay may give artificially low results in patients with liver disease. Blood Venous blood specimen / Unknown 05/22/2024 10:25 AM EST 05/22/2024 11:44 AM EST us Reyna Garcia MD LAB BLOOD ORDERABLES Final Result Performing Organization Address [facility]/ZIP Co de Phone Number [facility] [address] [place] [address] [place] [phone] * HM PAP/HPV (12/23/2022 5:30 PM EDT) us Historical Provider HEALTH MAINTENANCE Final Result [facility] [address] [place] [phone] from Last 3 Months or Most Recently Relevant to Health Maintenance Insurance [employer] Care Teams Chiropractic Neurologist Relationship Specialty Start Date End Date Reyna Rodriguez MD [address] [place] [phone] PCP - General Family Medicine 05/26/18
--- OUTSIDE RECORDS SUMMARY | 2024-10-24 08:55 | XMS_ITS | Encounter Summary ---
Author Organization [employer] [facility] Address [address] [place] [address] 7 [place] [address] Care Team Providers Care Brake Repairer Name Role Phone Reyna Rodriguez MD Primary Care Provide r Reason for Visit * Reason Comments Med Refill Encounter Details Date Type Department Care Team ([facility] Contact Info) Description 01/11/2023 Refill [facility] [address] [place] [address] [phone] Reyna Rodriguez MD [address] [place] [address] [phone] Chronic back pain, unspecified back location, unspecified [...] Upcoming Encounters Date Type Department Care Team ([facility] Contact Info) Description 10/30/2024 9:15 AM EDT Office Visit [facility] [address] [place] [address] [phone] Reyna Rodriguez MD [address] [place] [address] [phone] documented as of this encounter Visit Diagnoses Diagnosis Chronic back pain, unspecified back location, unspecified back pain laterality documented in this encounter Care Teams Brake Repairer Relationship Specialty Start Date End Date Reyna Rodriguez MD [address] [place] [address] PCP - General Family Medicine 05/26/18 documented as of this encounter
--- OUTSIDE RECORDS SUMMARY | 2024-10-24 08:55 | XMS_ITS | Encounter Summary ---
Author Organization [employer] Address [address] [facility] [address] 7t [place] [address] Care Team Providers Care Rose Grader Name Role Phone Reyna Rodriguez MD Primary Care Provide r Encounter Details Date Type Department Care Team ([facility] st Contact Info) Description 07/21/[address] [facility] [address] [place] [address] ProviderJeff MD Social History Tobacco Use Types Packs/Day Years [...] Description 10/30/2024 9:15 AM EDT Office Visit [facility] [address] [place] [address] Reyna Rodriguez MD [address] [place], [place] [phone] documented as of this encounter Procedures Procedure Name Priority Date/Time Associated Diagnosis Comments HM PAP/HPV Routine 12/23/2022 5:30 PM EDT documented in this encounter Results * HM PAP/HPV (12/23/2022 5:30 PM EDT) us Historical Provider HEALTH MAINTENANCE Final Result [facility] [address] [place] [address] documented in this encounter Visit Diagnoses Not on filedocumented in this encounter Care Teams Rose Grader Relationship Specialty Start Date End Date Reyna Rodriguez MD [address] [place] [address] [phone] PCP - General Family Medicine 05/26/18 documented as of this encounter
--- OUTSIDE RECORDS SUMMARY | 2024-10-24 08:55 | XMS_ITS | Encounter Summary ---
Author Organization [employer] Address [address] [facility] 7 [place] [address] Care Team Providers Care Liquor Merchant Name Role Phone Reyna Rodriguez MD Primary Care Provide r Reason for Visit * Reason Onset Date Comments Med Refill 09/10/2022 Encounter Details Date Type Department Care Team ([facility] Contact Info) Description 09/10/2022 Telephone [facility] [address] [place] [address] Reyna Rodriguez MD [address] [place] [address] Med Refill Social History Tobacco Use Types [...] (Neurontin) 800 MG tablet Please sent to [facility]/pharmacy #[id number] - [place] [facility] [address] [facility] documented in this encounter Plan of Treatment Upcoming Encounters Date Type Department Care Team (Late st Contact Info) Description 10/30/2024 9:15 AM EDT Office Visit [facility] [address] [place], [place] [phone] Reyna Rodriguez MD [address] [place] [address] documented as of this encounter Visit Diagnoses Not on filedocumented in this encounter Care Teams Liquor Merchant Relationship Specialty Start Date End Date Reyna Rodriguez MD [address] [place] [address] [phone] PCP - General Family Medicine 05/26/18 documented as of this encounter
--- OUTSIDE RECORDS SUMMARY | 2024-10-24 08:55 | XMS_ITS | Encounter Summary ---
Author Organization [employer] Address [address] [facility] 7t [place] [address] Care Team Providers Care Associate Artistic Director Name Role Phone Reyna Rodriguez MD Primary Care Provide r Reason for Visit * Reason Comments Med Refill Encounter Details Date Type Department Care Team ([facility] Contact Info) Description 06/03/2024 Refill [facility] [address] [place], [place] [phone] [facility] [address] [place] [address] Chronic back pain, unspecified back location, unspecified [...] Description 10/30/2024 9:15 AM EDT Office Visit [facility] [address] [place] [phone] Reyna Rodriguez MD [address] [place] [phone] documented as of this encounter Visit Diagnoses Diagnosis Chronic back pain, unspecified back location, unspecified back pain laterality documented in this encounter Care Teams Associate Artistic Director Relationship Specialty Start Date End Date Reyna Rodriguez MD [address] [place] [address] [phone] PCP - General Family Medicine 05/26/18 documented as of this encounter
--- OUTSIDE RECORDS SUMMARY | 2024-10-24 08:55 | XMS_ITS | Encounter Summary ---
Author Organization [employer] Address [address] [facility] [address] 7[address] [place] [address] Care Team Providers Care Dude Ranch Manager Name Role Phone Reyna Rodriguez MD Primary Care Provide r Encounter Details Date Type Department Care Team ([facility] st Contact Info) Description 07/08/2023 Abstract [facility] [address] [place], [place] [phone] Reyna Rodriguez MD [address] [place], [place] [phone] Social History Tobacco Use Types Packs/Day Years [...] Description 10/30/2024 9:15 AM EDT Office Visit [facility] [address] [place] [address] Reyna Rodriguez MD [address] [place] [address] documented as of this encounter Visit Diagnoses Not on filedocumented in this encounter Care Teams Dude Ranch Manager Relationship Specialty Start Date End Date Reyna Rodriguez MD [address] [place] [address] [phone] PCP - General Family Medicine 05/26/18 documented as of this encounter
--- OUTSIDE RECORDS SUMMARY | 2024-10-24 08:55 | XMS_ITS | Encounter Summary ---
Author Organization [employer] Address [address] [place] [address] 7 [place] [address] Care Team Providers Care Sander Portable Machine Name Role Phone Reyna Rodriguez MD Primary Care Provide r Encounter Details Date Type Department Care Team (Late st Contact Info) Description 10/07/2022 Orders Only [facility] [address] [place], [place] [phone] Julisa De Luna LPN Social History Tobacco [...] Department Care Team (Late Contact Info) Description 10/30/2024 9:15 AM EDT Office Visit [facility] [address] [place] [address] Reyna Rodriguez MD [address] [place] [address] documented as of this encounter Visit Diagnoses Not on filedocumented in this encounter Care Teams Sander Portable Machine Relationship Specialty Start Date End Date Reyna Rodriguez MD [address] [place] [phone] PCP - General Family Medicine 05/26/18 documented as of this encounter
== END 2024-10-24 09:09 | disposition home or self-care (01) ==
LOC: HO.HOS 08:40
PROVIDERS: PCP Student in an Organized Health Care Education/Training Program; Visit Provider Orthopaedic Surgery
DX: M25.562 Pain in left knee (principal); M25.561 Pain in right knee; S83.241A Other tear of medial meniscus, current injury, right knee, initial encounter
CPT/HCPCS: 99213; G2211

== ENCOUNTER → 2024-10-24 08:41 | Outpatient (BNV) | payer OTHER, MEDICAID, SELFPAY | PROVIDERS: Visit Provider Specialist | DX: M25.561 Pain in right knee (principal) | CPT/HCPCS: 73562 ==

== ENCOUNTER 2024-10-24 12:36 | Outpatient (REF) | payer OTHER, MEDICAID, SELFPAY ==
--- NOTE | ~2024-10-24 | XR_ITS ---
CLINICAL HISTORY: M25.561 - Pain in right knee 3 view right knee Comparison: None Findings: Bones intact. No dislocations. No significant loss of joint space, osteophytes, or erosions. No joint effusion. No radiopaque foreign body. IMPRESSION: 1. No acute findings. This document has been electronically signed by: Mitch Saenz MD on 10/26/2024 08:51:46
== END 2024-10-24 12:37 | disposition home or self-care (01) ==
LOC: HO.HOSX 12:36
PROVIDERS: Visit Provider Orthopaedic Surgery
DX: M25.561 Pain in right knee (principal)
CPT/HCPCS: 73562

== ENCOUNTER 2024-10-30 18:57 | Outpatient (REF) | payer OTHER, MEDICAID, SELFPAY ==
--- NOTE | ~2024-10-30 | MR_ITS ---
EXAMINATION: MRI RIGHT KNEE WITHOUT CONTRAST HISTORY: S83.241A - Other tear of medial meniscus, current injury, right knee COMPARISON: Correlation is made with plain films of the right knee dated 10/24/2024. TECHNIQUE: Coronal T1 and fat-suppressed proton density, sagittal proton density and fat-suppressed proton density, and axial fat suppressed T2 weighted MR images of the right knee were obtained. FINDINGS: Bone marrow: Bone marrow signal intensity is normal. Joint effusion: There is no joint effusion. Cervantes's cyst: There is no Cervantes's cyst. Articular cartilage: There is mild thinning of the articular cartilage involving the medial and patellofemoral compartments. Muscles/soft tissues: The visualized muscles demonstrate normal signal intensity. Anterior cruciate ligament: Intact Posterior cruciate ligament: Intact Medial collateral ligament: Intact Lateral collateral ligament: Intact Medial meniscus: There is a complex tear of the medial meniscus with a horizontal component involving the posterior horn, and a probable vertical component involving the body of the meniscus. High T2 signal within the meniscus contacts the inferior joint surfaces. The anterior horn appears intact. Lateral meniscus: Intact Flexor mechanism: The popliteus, gastrocnemius, and hamstring tendons are intact. Quadriceps tendon: Intact Patellar tendon: Intact Patellar retinacula: Intact MR/MR knee RT wo con IMPRESSION: 1. Complex tear of the body and posterior horn of the medial meniscus as described. 2. Mild cartilage thinning involving the medial and patellofemoral compartments. Electronically signed by: Roddy Genao MD 10/31/2024 07:16 AM EDT
== END 2024-10-30 18:58 | disposition home or self-care (01) ==
LOC: HO.MRI 18:57
PROVIDERS: PCP Internal Medicine; Visit Provider Orthopaedic Surgery
DX: S83.241A Other tear of medial meniscus, current injury, right knee, initial encounter (principal)
CPT/HCPCS: 73721

== ENCOUNTER → 2024-10-30 19:07 | Outpatient (BNV) | payer OTHER, MEDICAID, SELFPAY | PROVIDERS: PCP Internal Medicine; Visit Provider Radiology Diagnostic Radiology | DX: S83.241A Other tear of medial meniscus, current injury, right knee, initial encounter (principal) | CPT/HCPCS: 73721 ==

== ENCOUNTER 2024-10-31 11:05 | Outpatient (AMB) | payer OTHER, MEDICAID, SELFPAY ==
[2024-10-31 11:11] VITALS: BMI 32.5
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
== END 2024-10-31 12:02 | disposition home or self-care (01) ==
LOC: HO.HOS 11:05
PROVIDERS: PCP Internal Medicine; Visit Provider Orthopaedic Surgery
DX: S83.241A Other tear of medial meniscus, current injury, right knee, initial encounter (principal)
CPT/HCPCS: 99213; G2211

== ENCOUNTER 2024-11-16 05:46 | Day surgery (SDC) | payer MEDICAID, SELFPAY ==
[2024-11-14 15:42] VITALS: BMI 32.5
[2024-11-16 06:04] VITALS: BMI 32.6
[2024-11-16 06:06] VITALS: BMI 32.6
[2024-11-16 06:17] VITALS: BP 120/61; PULSE 66; RESP 17; TEMP 36.5; O2SAT 96
[2024-11-16 06:19] LABS: UPreg QC Valid YES; Urine Pregnancy NEGATIVE (NEGATIVE)
[2024-11-16] MEDS: Lactated Ringers 1,000 ML 100 ML IVCONT (06:33)
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
[2024-11-16 08:25] VITALS: BP 148/78; PULSE 68; RESP 16; TEMP 36.7; O2SAT 95
[2024-11-16 08:30] VITALS: BP 142/77; PULSE 60; RESP 17; O2SAT 94
[2024-11-16] MEDS: oxyCODONE HCl Immed Release 5 MG TABLET PO (08:33)
[2024-11-16] MEDS: fentaNYL citrate/PF 100 MCG/2 ML VIAL 50 MCG IVPUSH (08:33)
--- NOTE | 2024-11-16 08:34 | P.BOP_ITS ---
Brief Operative Note Date of Service: 11/16/24 Pre-op diagnosis: Right knee medial meniscus tear Post-op diagnosis: same Procedure: Right knee arthroscopic partial medial meniscectomy Implants: none Surgeon: Paul Calderon MD Anesthesia: GLMA Was an Aerospace Project Manager used for this Procedure?: No Estimated blood loss (mL): 10 Pathology: none sent Condition: stable Disposition: PACU
--- NOTE | 2024-11-16 08:34 | W.PM.OPN ---
Operative Note Operative Note Date of Service: 11/16/24 Narrative: After the patient was identified as Angela Oneill and her right knee was initialed by myself they were brought to the operating room where general anesthesia was induced by the anesthesiologist in routine fashion. The patient was given 2 g of IV Ancef for infection prophylaxis. A formal time-out was completed. The patient's right lower extremity was prepped and draped in sterile fashion. Marcaine with epinephrine was injected into the planned incision sites as well as their right knee joint. A # 11 scalpel blade was used to make an anterolateral portal 1 cm proximal to the joint line and 1 cm lateral to the patellar tendon. Blunt trocar technique was used into the suprapatellar pouch with the knee in extension. Diagnostic arthroscopy showed multiple bands of thickened plica which would be excised at the end of the procedure. There were no loose bodies or abnormalities found in either the medial or lateral gutters. There were minimal degenerative changes of the undersurface of the patella as well as the trochlear groove. The patient's knee was flexed to 45 degrees and a valgus force was placed upon it. The medial compartment was entered. An anteromedial portal was made 1 cm proximal to the joint line and 1 cm medial to the patellar tendon. Probing of the medial meniscus showed a radial tear of the anterior horn. A partial medial meniscectomy was performed using the arthroscopic shaver. Following the partial meniscectomy the remainder of the meniscus tissue was stable. There were diffuse grades 1 and 2 degenerative changes of the medial femoral condyle as well as diffuse grades 1 degenerative changes of the medial tibial plateau. The articular surfaces of the medial femoral condyle and medial tibial plateau were already smooth so no chondroplasty was indicated. The patient's knee was then placed into a neutral position. There was no injury to the anterior cruciate ligament. The patient's knee was then placed into the figure of 4 position and the lateral compartment was entered. There were minimal degenerative changes of the lateral femoral condyle and lateral tibial plateau. There was no evidence of lateral meniscus tearing. The patient's knee was once again brought into extension and the suprapatellar pouch was entered. The arthroscopic shaver and the ArthroCare Wand were used to excise the thickened bands of plica. The knee joint was irrigated and then drained. All arthroscopic instruments were removed. The 2 portals were closed with 3-0 nylon interrupted suture. The knee joint was injected with Marcaine. Dry sterile dressing and Wil bandages were placed over the patient's knee. The patient was awoken and extubated in the operating room. They were transferred to the recovery room in stable condition.
[2024-11-16 08:35] VITALS: BP 146/79; PULSE 59; RESP 17; O2SAT 93
[2024-11-16 08:40] VITALS: BP 128/71; PULSE 56; RESP 17; O2SAT 94
[2024-11-16] MEDS: cefTRIAXone sodium 1 GM VIAL IVPUSH (08:44)
[2024-11-16 08:55] VITALS: BP 133/60; PULSE 59; RESP 18; TEMP 36.2; O2SAT 94
== END 2024-11-16 09:22 | disposition home or self-care (01) ==
PROVIDERS: Nurse Practitioner; PCP Internal Medicine; Visit Provider Orthopaedic Surgery
PROC: (CPT 29870; principal; 2024-11-16 07:30)
DX: S83.241A Other tear of medial meniscus, current injury, right knee, initial encounter (principal); M67.51 Plica syndrome, right knee; G89.29 Other chronic pain; M25.561 Pain in right knee; M23.51 Chronic instability of knee, right knee; M17.11 Unilateral primary osteoarthritis, right knee; M32.9 Systemic lupus erythematosus, unspecified; X58.XXXA Exposure to other specified factors, initial encounter; Y93.9 Activity, unspecified; Y92.9 Unspecified place or not applicable; Y99.9 Unspecified external cause status; Z79.891 Long term (current) use of opiate analgesic; Z79.899 Other long term (current) drug therapy; Z88.1 Allergy status to other antibiotic agents; Z88.8 Allergy status to other drugs, medicaments and biological substances; Z88.5 Allergy status to narcotic agent; Z87.891 Personal history of nicotine dependence; Z98.890 Other specified postprocedural states; Z56.0 Unemployment, unspecified
CPT/HCPCS: 29881; 81025; J0131; J0171; J0690; J0696; J1100; J1885; J2003; J2405; J2704; J2795; J3010

== ENCOUNTER → 2024-11-16 05:46 | Outpatient (BNV) | payer MEDICAID, SELFPAY | PROVIDERS: PCP Internal Medicine; Visit Provider Orthopaedic Surgery | DX: S83.241A Other tear of medial meniscus, current injury, right knee, initial encounter (principal) | CPT/HCPCS: 29881 ==

== ENCOUNTER 2024-11-29 13:57 | Outpatient (AMB) | payer MEDICAID, SELFPAY ==
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
[2024-11-29 14:07] VITALS: BMI 32.5
--- OUTSIDE RECORDS SUMMARY | 2024-11-29 16:31 | XMS_ITS | Encounter Summary ---
Author Organization [employer] Address [address] [place] [address] [address] [place] [address] Care Team Providers Care Process Owner Name Role Phone Reyna Rodriguez MD Primary Care Provide r Encounter Details Date Type Department Care Team (Late st Contact Info) Description 10/07/2022 Orders Only [facility] [address] [place] [address] Julisa De Luna LPN Social History Tobacco [...] Care Team (Late st Contact Info) Description 01/24/2025 9:15 AM EDT Office Visit [facility] [address] [place] [address] Reyna Rodriguez MD [address] [place] [address] documented as of this encounter Visit Diagnoses Not on filedocumented in this encounter Care Teams Process Owner Relationship Specialty Start Date End Date Reyna Rodriguez MD [address] [place] [address] PCP - General Family Medicine 05/26/18 documented as of this encounter
== END 2024-11-29 14:16 | disposition home or self-care (01) ==
LOC: HO.HOS 13:57
PROVIDERS: PCP Internal Medicine; Visit Provider Orthopaedic Surgery
DX: M25.561 Pain in right knee (principal)
CPT/HCPCS: 99024

== ENCOUNTER → 2024-11-29 13:57 | Outpatient (BNVA) | payer MEDICAID, SELFPAY | PROVIDERS: PCP Internal Medicine; Visit Provider Orthopaedic Surgery | DX: M25.561 Pain in right knee (principal) | CPT/HCPCS: 99212 ==